=== PATIENT | female | born 1945 | race Caucasian/White ===

== ENCOUNTER 2016-11-18 13:49 | Observation (INO) | payer OTHER ==
[~2016-11-18] VITALS: Ht 167.6 cm; Wt 91.1 kg
[~2016-11-18 13:49] MED LIST: ATOR10TA82 PO; CETI10TA10 PO; CHOL1000 PO; CHOL20007 PO; LATA0.009 OPB; TIMO1SOL6 OPB
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
[2016-11-18] MEDS ORDERED: LATA0.5S OP (14:36)
[2016-11-18] MEDS ORDERED: MULT1TAB56 PO (14:38)
--- NOTE | 2016-11-18 14:42 | DIAGNOSTIC IMAGING REPORT ---
CHEST ONE VIEW PORTABLE HISTORY: Atypical CHEST PAIN COMPARISON: Chest 11/27/2015. FINDINGS: The lungs are clear. Cardiac silhouette is normal in size. No pleural effusions. No pneumothorax. IMPRESSION: No acute process. Electronically signed by: Henry Chavez M.D. 11/18/2016 2:41 PM Dictated Date/Time: 11/18/2016 2:40 PM
--- NOTE | 2016-11-18 15:01 | DIAGNOSTIC IMAGING REPORT ---
CT HEAD WITHOUT CONTRAST (CT) CLINICAL HISTORY: Amnesia. Possible stroke. Headache. COMPARISON STUDY: No previous studies for comparison. TECHNIQUE: Axial CT of the brain is performed from the vertex to the skull base. IV contrast was not administered for this examination. CT DOSE: 537.48 mGy.cm FINDINGS: No intra or extra-axial mass lesions are visualized. There is no CT evidence of acute cortical infarction. There is no evidence of midline shift. There is no acute hemorrhage. No calvarial fractures are visualized. There is no evidence of pathologic ventricular dilatation. There is no evidence of acute sinusitis IMPRESSION: No acute intracranial findings Electronically signed by: Sen Polanco M.D. 11/18/2016 3:00 PM Dictated Date/Time: 11/18/2016 2:58 PM
[2016-11-18 15:07] LABS: BASO % 0.1 %; BASO ABS # 0.01 K/uL (0-0.2); COMPLETE YES; EOS % 0.8 %; IG% 0.4 %; LYMPH % 14.2 %; MEAN CELL VOLUME 89.4 fL (80-100); MEAN CORPUSCULAR HEMOGLOBIN 30.1 pg (25-34); MEAN CORPUSCULAR HGB CONC 33.6 g/dl (32-36); MEAN PLATELET VOLUME 10.4 fL (7.4-10.4); MONO % 7.6 %; NEUT % 76.9 %; PLATELET COUNT 200 K/uL (130-400); RED BLOOD COUNT 4.92 M/uL (4.2-5.4); WHITE BLOOD COUNT 8.45 K/uL (4.8-10.8)
[2016-11-18 15:30] LABS: BLOOD UREA NITROGEN 19 mg/dl (7-18); BUN/CREATININE RATIO 21.4 (10-20); CALCIUM 9.5 mg/dl (8.5-10.1); CARBON DIOXIDE 30 mmol/L (21-32); CHLORIDE 107 mmol/L (98-107); GLUCOSE 134 mg/dl (70-99); POTASSIUM 4.1 mmol/L (3.5-5.1); SODIUM 142 mmol/L (136-145)
[2016-11-18 15:50] LABS: ALKALINE PHOSPHATASE 88 U/L (45-117); ALT/SGPT 34 U/L (12-78); AST/SGOT 17 U/L (15-37)
[2016-11-18] MEDS ORDERED: ASPIRIN 81 MG CHEW PO STA (18:24)
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
[2016-11-18] MEDS ORDERED: ZOLPIDEM TARTRATE 5 MG TAB PO PRN (20:00)
[2016-11-18] MEDS ORDERED: POLYETHYLENE (MIRALAX) 17 GM PACK PO PRN (20:00)
[2016-11-18] MEDS ORDERED: ACETAMINOPHEN 325 MG TAB PO PRN (20:00)
[2016-11-18] MEDS ORDERED: ALUMINUM/MAGNESIUM/SIMETH (MAALOX MAX) 30 ML UDC PO PRN (20:00)
[2016-11-18] MEDS ORDERED: ONDANSETRON INJ 2 MG/ML 2 ML VIAL IV PRN (20:00)
[2016-11-18] MEDS ORDERED: HydrALAZINE HCL 20 MG/ML VIAL IV. PRN (20:00)
[2016-11-18] MEDS ORDERED: MAGNESIUM HYDROXIDE SUSP 30 ML UDC PO PRN (20:00)
[2016-11-18] MEDS ORDERED: PHARMACIST DISCHARGE MED REC CONSULT PRN (20:00)
--- NOTE | 2016-11-18 20:01 | Progress Note ---
Progress Note Date of Service November 18, 2016. Progress Note trancient global amnesia, tia?[id number]
[2016-11-18 20:34] VITALS: O2SAT 94
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
[2016-11-18] MEDS ORDERED: ATORVASTATIN 10 MG TAB PO SCH (21:00)
[2016-11-18] MEDS ORDERED: LATANOPROST 0.005% OP SOLN 2.5 ML BTL OP SCH (21:00)
--- NOTE | 2016-11-18 21:07 | DIAGNOSTIC IMAGING REPORT ---
BILATERAL CAROTID DOPPLER STUDY HISTORY: Mental status change Stroke COMPARISON: None. TECHNIQUE: Real-time, grayscale, and color Doppler sonography of the carotid arteries was performed. Imaging reviewed in the transverse and longitudinal planes. All measurements were calculated based on NASCET criteria. FINDINGS: Antegrade flow is seen in the bilateral vertebral arteries. The brachial pressures are hemodynamically similar. Moderate plaque formation bilaterally The peak systolic velocity within the right ICA is 69. The right systolic ratio is 0.73. The peak systolic velocity within the left ICA is 86. The left systolic ratio is 0.83. IMPRESSION: No hemodynamically significant stenosis seen within the carotid arteries. Moderate plaque formation bilaterally Electronically signed by: Jose Duffy M.D. 11/18/2016 9:05 PM Dictated Date/Time: 11/18/2016 9:05 PM
[2016-11-18] MEDS ORDERED: LORAZEPAM 2 MG/ML 1 ML VIAL ONE (21:22)
[2016-11-18] MEDS ORDERED: NURSING VERBAL MED ORDER ONE (21:30)
[2016-11-18] MEDS ORDERED: IV FLUIDS COMPLETED PRN (22:00)
[2016-11-18] MEDS ORDERED: GADAVIST IV PRN (22:15)
--- NOTE | 2016-11-18 22:21 | DIAGNOSTIC IMAGING REPORT ---
MRI OF THE BRAIN WITHOUT AND WITH IV CONTRAST CLINICAL HISTORY: Stroke mental status change COMPARISON STUDY: No previous studies for comparison. TECHNIQUE: Utilizing a 1.5 Krystal magnet and dedicated coil, multiplanar, multiecho imaging of the brain was performed pre and postcontrast administration. IV administration of 8.5 mL of Gadavist contrast was uneventful. FINDINGS: No evidence for an acute ischemic event. Signal characteristics are unremarkable. No abnormal postcontrast enhancement. Ventricular system is midline. IMPRESSION: Normal study. Electronically signed by: Jose Duffy M.D. 11/18/2016 10:20 PM Dictated Date/Time: 11/18/2016 10:18 PM
[2016-11-18] MEDS ORDERED: PATIENT'S HEIGHT AND/OR WEIGHT NEEDED SCH (22:30)
[2016-11-18] MEDS ORDERED: LORAZEPAM INJ 0.5 MG in SYRINGE 0.75 ML IV PRN (22:30)
[2016-11-18] MEDS ORDERED: LORAZEPAM 2 MG/ML 1 ML VIAL IV PRN (22:30)
[2016-11-18 22:34] VITALS: BP 139/82; PULSE 70; TEMP 36.9; Ht 167.6 cm; Wt 91.1 kg
[2016-11-18 23:01] LABS: PARTIAL THROMBOPLASTIN RATIO 1.1; PROTHROMBIN TIME (PATIENT) 10.4 SECONDS (9.0-12.0)
[2016-11-18 23:10] VITALS: BP 122/75; PULSE 65; TEMP 36.6; O2SAT 97
[2016-11-19 03:15] VITALS: BP 103/61; PULSE 65; TEMP 36.7; O2SAT 95
[2016-11-19 07:29] LABS: BASO % 0.3 %; BASO ABS # 0.02 K/uL (0-0.2); COMPLETE YES; EOS % 1.9 %; IG% 0.2 %; LYMPH % 27.5 %; LYMPH ABS # 1.63 K/uL (1.2-3.4); MEAN CELL VOLUME 88.7 fL (80-100); MEAN CORPUSCULAR HEMOGLOBIN 30.4 pg (25-34); MEAN CORPUSCULAR HGB CONC 34.3 g/dl (32-36); MONO % 10.3 %; NEUT % 59.8 %; PLATELET COUNT 165 K/uL (130-400); RED BLOOD COUNT 4.51 M/uL (4.2-5.4); WHITE BLOOD COUNT 5.92 K/uL (4.8-10.8)
[2016-11-19 07:36] LABS: ESTIMATED AVERAGE GLUCOSE 134 mg/dl; HA1C FLAG Normal (Normal)
[2016-11-19 07:48] VITALS: BP 142/81; PULSE 63; TEMP 36.9; O2SAT 95
[2016-11-19 07:59] LABS: BUN/CREATININE RATIO 24.8 (10-20); CREATININE 0.66 mg/dl (0.60-1.20); POTASSIUM 3.6 mmol/L (3.5-5.1)
[2016-11-19 08:02] LABS: CHOLESTEROL/HDL RATIO 2.7
[2016-11-19 08:28] LABS: CALCIUM 9.1 mg/dl (8.5-10.1)
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
[2016-11-19] MEDS ORDERED: ASPIRIN 81 MG ECTAB PO SCH (09:00)
[2016-11-19] MEDS ORDERED: CEROVITE ADV FORMULA TAB PO SCH (09:00)
[2016-11-19] MEDS ORDERED: PANTOprazole SOD 40 MG TAB PO SCH (09:00)
[2016-11-19] MEDS ORDERED: ENOXAPARIN 40 MG/0.4 ML SYR SC SCH (09:00)
[2016-11-19 11:18] VITALS: BP 141/61; PULSE 67; TEMP 36.8; O2SAT 93
--- NOTE | 2016-11-19 13:10 | Discharge Instructions ---
Discharge Instructions Date of Service November 19, 2016. Admission Reason for Admission: Transient Global Amnesia Discharge Discharge Diagnosis / Problem: Complex Migraine Discharge Goals Goal(s): Decrease discomfort, Improve function, Increase independence, Improve disease control Activity Recommendations Activity Limitations: resume your previous activity Lifting Limitations: none Exercise/Sports Limitations: none May Resume Sexual Activity: when tolerated Shower/Bathe: no limitations Driving or Machine Use: no limitations . Instructions / Follow-Up Instructions / Follow-Up You were admitted to [facility] with transient amnesia and diagnosed with complex migraine s/p stress induced hypertension. - During your stay here you were treated with supportive treatment, therapy and passed speech evaluations.. - Imaging studies which were completed include CT brain, MRI brain, Chest xray and carotid ultrasound, and were all normal. An echocardiogram was completed while you were here, the results were not read by radiology but you were stable and safe for discharge. Please discuss the findings of your echocardiogram at your PCP appointment as scheduled tomorrow. Please check your blood pressure as directed by your PCP. Continue taking all medications as prescribed. Current Hospital Diet Patient's current hospital diet: AHA Diet (Heart Healthy) Discharge Diet Recommended Diet: AHA Diet (Heart Healthy) Pending Studies Studies pending at discharge: yes List of pending studies: Echocardiogram Laboratory Results Hemoglobin A1c Test 11/18/16 14:50 Range/Units Estimated Average Glucose 134 mg/dl Hemoglobin A1c 6.3 H 4.5-5.6 % Lipid Panel Test 11/19/16 07:00 Range/Units Triglycerides Level 135 0-150 mg/dl Cholesterol Level 157 0-200 mg/dl HDL Cholesterol 58 mg/dl Cholesterol/HDL Ratio 2.7 LDL Cholesterol, Calculated 72 mg/dl Medical Emergencies . Who to Call and When: Medical Emergencies: If at any time you feel your situation is an emergency, please call 911 immediately. . Non-Emergent Contact Non-Emergency issues call your: Primary Care Provider Call Non-Emergent contact if: you have a fever, temperature is above 100.5, your pain is not controlled, your pain is worsening, you have any medication questions . Past History Medical & Surgical History: (1) complex migraine (2) Hyperlipidemia (3) IBS (irritable bowel syndrome) (4) History of tobacco use . "Provider Documentation" section prepared by Deja Jc. . VTE Core Measure Inpt VTE Proph given/why not?: Enoxaparin (Lovenox)SQ, Cash Anaya, SCD's [place] Drug Monitoring Program Search Results: no issues identified
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
--- NOTE | 2016-11-19 13:27 | ECHOCARDIOGRAM REPORT ---
*NOTICE TO RECEIVING LIBERTARIAN AGENCY This information is strictly Confidential and protected under [place] law. [place] law prohibits you from making any further disclosure of this information unless further disclosure is expressly permitted by the written consent of the person to whom it pertains or is authorized by law. A general authorization for the release of medical or other information is not sufficient for this purpose. Hospital accepts no responsibility if the information is made available to any other person, INCLUDING THE PATIENT. Interpretation Summary * Name: TANO PAYTON Study Date: 11/19/2016 11:38 AM BP: 103/61 mmHg * Patient Location: .ED HR: 65 * : 1945 (M/d/yyyy) Gender: Female Height: 66 in * Age: 71 yrs Ethnicity: CA Weight: 204 lb * Ordering Physician: Ricci Meade * Referring Physician: Self, Referred * Performed By: Shravna Johnson RCS * * Reason For Study: TIA * BSA: 2.0 m2 * -- Conclusions -- * Left ventricular systolic function is normal. * Grade I diastolic dysfunction, (abnormal relaxation pattern). * Injection of contrast documented no interatrial shunt. Procedure Details * A complete two-dimensional transthoracic echocardiogram was performed (2D, M-mode, Doppler and color flow Doppler). * A saline contrast injection was performed to assess for cardiac shunting. * The injection was performed through an intravenous line in the right arm. * The attending nurse who injected the saline contrast was MORGAN RIVERA RN. * A total of 20 cc of agitated saline was given. Left Ventricle * The left ventricle is normal in size. * There is normal left ventricular wall thickness. * Ejection Fraction = 65-70%. * Left ventricular systolic function is normal. * Grade I diastolic dysfunction, (abnormal relaxation pattern). Right Ventricle * The right ventricle is normal in size and function. Atria * The left atrial size is normal. * Right atrial size is normal. * Injection of contrast documented no interatrial shunt. Mitral Valve * The mitral valve is grossly normal. * Significant mitral regurgitation is absent. Tricuspid Valve * The tricuspid valve is not well visualized, but is grossly normal. * Significant tricuspid regurgitation is absent. Aortic Valve * The aortic valve is not well visualized. * No hemodynamically significant valvular aortic stenosis. * There is no significant aortic regurgitation. Great Vessels * The aortic root is normal size. Pericardium/Pleural * There is no pericardial effusion. Great Vessels * Normal inferior vena cava diameter and respiratory variation suggests normal central venous pressure. MMode 2D Measurements and Calculations IVSd 0.87 cm IVSs 1.1 cm LVIDd 3.9 cm LVIDs 2.5 cm LVPWd 1.2 cm LVPWs 1.3 cm IVS/LVPW 0.72 FS 35.9 % EDV(Teich) 66.0 ml ESV(Teich) 22.4 ml EF(Teich) 66.1 % EDV(cubed) 59.4 ml ESV(cubed) 15.7 ml EF(cubed) 73.6 % % IVS thick 31.4 % % LVPW thick 7.5 % LV mass(C)d 128.8 grams LV mass(C)dI 63.8 grams/m\S\2 LV mass(C)s 87.8 grams LV mass(C)sI 43.6 grams/m\S\2 CO(Teich) 2.8 l/min CI(Teich) 1.4 l/min/m\S\2 SV(Teich) 43.6 ml SI(Teich) 21.6 ml/m\S\2 CO(cubed) 2.8 l/min CI(cubed) 1.4 l/min/m\S\2 SV(cubed) 43.7 ml SI(cubed) 21.7 ml/m\S\2 Ao root diam 3.4 cm Ao root area 9.0 cm\S\2 ACS 1.7 cm asc Aorta Diam 3.1 cm LVAd ap4 22.5 cm\S\2 LVLd ap4 6.8 cm EDV(MOD-sp4) 61.0 ml LVAs ap4 11.4 cm\S\2 LVLs ap4 5.5 cm ESV(MOD-sp4) 20.0 ml EF(MOD-sp4) 67.2 % LVAd ap2 17.2 cm\S\2 LVLd ap2 6.1 cm EDV(MOD-sp2) 40.0 ml LVAs ap2 8.5 cm\S\2 LVLs ap2 4.8 cm ESV(MOD-sp2) 14.0 ml EF(MOD-sp2) 65.0 % CO(MOD-sp4) 2.6 l/min CI(MOD-sp4) 1.3 l/min/m\S\2 SV(MOD-sp4) 41.0 ml SI(MOD-sp4) 20.3 ml/m\S\2 CO(MOD-sp2) 1.7 l/min CI(MOD-sp2) 0.82 l/min/m\S\2 SV(MOD-sp2) 26.0 ml SI(MOD-sp2) 12.9 ml/m\S\2 Doppler Measurements and Calculations MV E max yaritza 56.8 cm/sec MV A max yaritza 100.2 cm/sec MV E/A 0.57 MV P1/2t max yaritza 66.2 cm/sec MV P1/2t 129.0 msec MVA(P1/2t) 1.7 cm\S\2 MV dec slope 150.4 cm/sec\S\2 MV dec time 0.31 sec Ao V2 max 98.5 cm/sec Ao max PG 3.9 mmHg Ao max PG (full) 0.90 mmHg LV V1 max PG 3.0 mmHg LV V1 max 86.4 cm/sec PA V2 max 88.7 cm/sec PA max PG 3.2 mmHg PI max yaritza 125.5 cm/sec PI max PG 6.3 mmHg PI dec slope 95.1 cm/sec\S\2 PI P1/2t 386.5 msec
[2016-11-19 13:32] VITALS: BP 141/61; PULSE 67; TEMP 36.8; O2SAT 93
== END 2016-11-19 14:10 | disposition home or self-care (01) ==
LOC: ENRESERVTM → ENRESERVDT → C.EDB 13:51 → C.MED 19:52
PROVIDERS: ADMIT Hospitalist; ATTEND Hospitalist
DX: G43.809 Other migraine, not intractable, without status migrainosus (principal); E78.5 Hyperlipidemia, unspecified; R91.1 Solitary pulmonary nodule; E66.3 Overweight; Z87.891 Personal history of nicotine dependence; Z79.899 Other long term (current) drug therapy; I10 Essential (primary) hypertension; M25.551 Pain in right hip; K58.9 Irritable bowel syndrome, unspecified

== ENCOUNTER → 2016-12-31 | Outpatient (CLI) | payer OTHER ==
[~2016-12-31] MED LIST changes: -CETI10TA10 PO; -CHOL1000 PO; -CHOL20007 PO; -LATA0.009 OPB; +LATA0.5S OP; +MULT1TAB56 PO
--- NOTE | 2017-01-01 07:59 | MAMMOGRAPHY REPORT ---
BILATERAL DIGITAL SCREENING MAMMOGRAM TOMOSYNTHESIS WITH CAD: 12/31/2016 CLINICAL HISTORY: Routine screening. Patient has no complaints. TECHNIQUE: Breast tomosynthesis in addition to standard 2D mammography was performed. Current study was also evaluated with a Computer Aided Detection (CAD) system. COMPARISON: Comparison is made to exams dated: 12/30/2015 mammogram, 12/27/2014 mammogram, 12/25/2014 m ammogram, 12/21/2013 mammogram, 12/20/2012 mammogram, and 07/07/2011 mammogram - [facility]. BREAST COMPOSITION: There are scattered areas of fibroglandular density in both breasts. FINDINGS: No suspicious masses, calcifications, or areas of architectural distortion are noted in ei ther breast. There has been no significant interval change compared to prior exams. Scattered bilater al benign-appearing calcifications are not significantly changed. Circumscribed benign-appearing mas s in the right upper outer quadrant is again noted, and was shown to represent a benign cyst on the p rior 2014 ultrasound exam. IMPRESSION: ACR BI-RADS CATEGORY 2: BENIGN There is no mammographic evidence of malignancy. A 1 year screening mammogram is recommended. The pa tient will receive written notification of the results. Approximately 10% of breast cancers are not detected with mammography. A negative mammographic report should not delay biopsy if a clinically suggestive mass is present. Aggie Chen M.D. /:12/31/2016 14:38:35 Bedspread Seamer: Sherry Albarran RT(R)(Scotty)(BD), [facility] letter sent: Normal 1/2 BI-RADS Code: ACR BI-RADS Category 2: Benign
== END | disposition home or self-care (01) ==
LOC: C.MAMM 08:38
PROVIDERS: ATTEND Family Medicine
DX: Z12.31 Encounter for screening mammogram for malignant neoplasm of breast (principal)

== ENCOUNTER → 2017-01-29 | Outpatient (CLI) | payer OTHER ==
[~2017-01-29] MED LIST changes: -ATOR10TA82 PO; +ATOR10TA88 PO
== END | disposition home or self-care (01) ==
LOC: C.LABPVFM 10:12
PROVIDERS: ATTEND Nurse Practitioner Family
DX: N39.0 Urinary tract infection, site not specified (principal)

== ENCOUNTER → 2017-06-24 | Outpatient (CLI) | payer OTHER ==
[~2017-06-24] MED LIST changes: +ATOR10TA82 PO; -ATOR10TA88 PO
[2017-06-24 13:12] LABS: ESTIMATED AVERAGE GLUCOSE 131 mg/dl; HA1C FLAG Normal (Normal)
[2017-06-24 13:52] LABS: ALT/SGPT 29 U/L (12-78); AST/SGOT 16 U/L (15-37); BLOOD UREA NITROGEN 17 mg/dl (7-18); BUN/CREATININE RATIO 22.7 (10-20); CALCIUM 8.8 mg/dl (8.5-10.1); CARBON DIOXIDE 26 mmol/L (21-32); CHLORIDE 107 mmol/L (98-107); CREATININE 0.75 mg/dl (0.60-1.20); GLUCOSE 125 mg/dl (70-99); POTASSIUM 4.1 mmol/L (3.5-5.1); SODIUM 139 mmol/L (136-145)
[2017-06-24 13:55] LABS: ALKALINE PHOSPHATASE 76 U/L (45-117); CHOLESTEROL 145 mg/dl (0-200); CHOLESTEROL/HDL RATIO 2.2; HDL CHOLESTEROL 65 mg/dl; LDL CHOLESTEROL CALCULATED 54 mg/dl; TRIGLYCERIDES 130 mg/dl (0-150); VERY LOW DENSITY LIPOPROT CALC 26 mg/dl
== END | disposition home or self-care (01) ==
LOC: C.LABPVFM 10:40
PROVIDERS: ATTEND Family Medicine
DX: R73.01 Impaired fasting glucose (principal); E78.5 Hyperlipidemia, unspecified; Z11.59 Encounter for screening for other viral diseases

== ENCOUNTER 2023-04-22 20:51 | Observation (INO) ==
[~2023-04-22 20:51] MED LIST changes: -ATOR10TA82 PO; -LATA0.5S OP; -MULT1TAB56 PO; +NSS + 20MEQ KCL 20 MEQ/1,000 ML BAG IV SCH; -TIMO1SOL6 OPB
[2023-04-22] MEDS ORDERED: ASPIRIN CHEW 324 MG PO STA (20:55)
[2023-04-22] MEDS ORDERED: STAT IV Infusion **Titration per Protocol STA (21:07)
[2023-04-22] MEDS ORDERED: dilTIAZem HCl 5 MG/ML 5 ML VIAL IV STA (21:14)
[2023-04-22] MEDS ORDERED: dilTIAZem HCl 5 MG/ML 5 ML VIAL IV ONE (21:15)
[2023-04-22] MEDS ORDERED: dilTIAZem HCL 125 MG in DEXTROSE 5% 100 ML IV SCH (21:15)
[2023-04-22] MEDS ORDERED: SODIUM CHLORIDE 0.9% 1,000 ML IV SCH (21:15)
[2023-04-22 21:23] LABS: iSTAT Creatinine 0.7 mg/dl (0.6-1.3); iSTAT Ionized Calcium 1.19 mmol/l (1.12-1.32); iSTAT Potassium 3.6 mmol/L (3.3-5.0)
[2023-04-22 21:29] LABS: Basophils # (auto) 0.01 K/uL (0.00-0.20); Basophils % (auto) 0.2 %; Eosinophils # (auto) 0.07 K/uL (0.00-0.50); Eosinophils % (auto) 1.1 %; Hematocrit (blood only) 45.7 % (37.0-47.0); Hemoglobin 15.7 g/dl (12.0-16.0); Immature Granulocytes # (auto) 0.02 K/uL (0.01-0.20); Immature Granulocytes % (auto) 0.3 %; Lymphocytes # (auto) 1.76 K/uL (1.20-3.40); Lymphocytes % (auto) 27.8 %; Mean Corpuscular Hemoglobin 30.3 pg (25.0-34.0); Mean Corpuscular Hgb Conc 34.4 g/dL (32.0-36.0); Mean Corpuscular Volume 88.2 fL (80.0-100.0); Mean Platelet Volume 10.5 fL (9.4-12.4); Monocytes # (auto) 0.42 K/uL (0.11-0.59); Monocytes % (auto) 6.6 %; Neutrophils # (auto) 4.05 K/uL (1.40-6.50); Platelet Count 210 K/uL (130-400); RDW Coefficient of Variation 12.7 % (11.5-14.5); RDW Standard Deviation 41.2 fL (36.4-46.3); Red Blood Count 5.18 M/uL (4.20-5.40); White Blood Count 6.33 K/ul (4.8-10.8)
[2023-04-22] MEDS ORDERED: OPTIRAY 320 500ml IV ONE (21:37)
[2023-04-22 21:45] LABS: BUN Creatinine Ratio 23.9 (10-20); Calcium 10.1 mg/dl (8.6-10.3); Creatinine Clr Calc Pharmacy 60.9 ml/min; Est GFR (African American) 73.5 ml/min; Est GFR (Non-African American) 63.4 ml/min; Potassium 3.7 mmol/L (3.5-5.1)
[2023-04-22 21:52] LABS: Troponin I High Sensitivity 7.8 pg/ml (0-14)
[2023-04-22 22:10] LABS: INR 0.9 (0.9-1.1); Partial Thromboplastin Ratio 0.9; Partial Thromboplastin Time 26.7 Seconds (21.0-31.0); Prothrombin Time 9.9 Seconds (9.0-12.0)
--- NOTE | 2023-04-22 22:35 | CT Scan Report ---
Exam(s): CTA CHEST IV Amt: 111ml optiray 320 EXAM: CT Angiography Chest With Intravenous Contrast CLINICAL HISTORY: Rule out PE. TECHNIQUE: Axial computed tomographic angiography images of the chest with intravenous contrast. CTDI is 26.03 mGy and DLP is 808.11 mGy-cm. Automated exposure control was utilized for the study. A dose lowering technique was utilized adhering to the principles of ALARA. MIP reconstructed images were created and reviewed. COMPARISON: CT chest without contrast dated 05/15/2022 FINDINGS: Pulmonary arteries: There is no evidence for pulmonary embolism. Aorta: No acute findings. No thoracic aortic aneurysm. Lungs: There is similar subcentimeter noncalcified pulmonary nodules in the peripheral left lower lobe, stable in size and number. Slightly heterogeneous attenuation of the lungs. No focal airspace consolidation. Pleural space: Unremarkable. No significant effusion. No pneumothorax. Heart: Unremarkable. No cardiomegaly. No significant pericardial effusion. Bones/joints: No acute fracture. No dislocation. Soft tissues: Unremarkable. Lymph nodes: Unremarkable. No enlarged lymph nodes. IMPRESSION: 1. There is no evidence for pulmonary embolism. 2. No focal airspace consolidation. No pleural effusion or pneumothorax. 3. Subcentimeter noncalcified pulmonary nodules in the left lower lobe, stable from the previous examination. Electronically signed by: Guzman Solis MD 04/22/23 22:34 PM
[2023-04-22] MEDS ORDERED: Heparin IV Adult Wt-Based Low-Dose WITH Bolus Protocol IV STA (22:40)
[2023-04-22] MEDS ORDERED: HEPARIN SOD (PORCINE) 1000 UNIT/ML IV ONE (22:55)
[2023-04-22] MEDS ORDERED: HEPARIN SODIUM/DEXTROSE 25,000 UNITS/500 ML BAG IV SCH (23:00)
[2023-04-22] MEDS ORDERED: POTASSIUM CHLORIDE CRTAB 20 MEQ TABCR PO STA (23:19)
[2023-04-22] MEDS ORDERED: Nursing to Pharmacy Communication SCH (23:30)
--- NOTE | 2023-04-22 23:42 | Emergency Department Note ---
History of Present Illness General Chief Complaint: Cardiac Assessment Time Seen by Provider: 04/22/23 20:55 History of Present Illness Provider Complaint: + rapid heart beat and + palpitations Onset (ago): 1 day(s) Context: + occurred during rest Arrhythmia history: no atrial fibrillation or no on anti-coagulants Associated symptoms: + chest pain and + shortness of breath; no near-syncope or no vomiting Treatments prior to arrival: + calcium channel tony (20 mg of Cardizem was ordered which brought the patient's heart rate from 1 80-140 for EMS) and + adenosine (6 mg and 12 mg by EMS which showed atrial fibrillation) Home Medications Medication Instructions Recorded Confirmed Type cholecalciferol (vitamin D3) 75 3,000 units PO QAM 01/05/19 04/22/23 History mcg (3,000 unit) tablet atorvastatin 10 mg tablet 10 mg PO QAM #90 tabs 05/12/22 04/22/23 Rx metformin 500 mg tablet 500 mg PO DAILY #90 tabs 05/12/22 04/22/23 Rx albuterol sulfate 90 mcg/actuation 2 puff inhalation QID PRN 04/22/23 04/22/23 History aerosol inhaler (ProAir HFA) Shortness Of Breath Or Wheezing brimonidine 0.2 %-timolol 0.5 % 1 drp OPB QAM 04/22/23 04/22/23 History eye drops (Combigan) brimonidine 0.2 %-timolol 0.5 % 1 drp OPL .Q 1700 04/22/23 04/22/23 History eye drops (Combigan) brinzolamide 1 % eye 1 drp OPB QAM 04/22/23 04/22/23 History drops,suspension (Azopt) brinzolamide 1 % eye 1 drp OPL .Q 1700 04/22/23 04/22/23 History drops,suspension (Azopt) latanoprostene bunod 0.024 % eye 1 drp OPB HS 04/22/23 04/22/23 History drops (Vyzulta) pantoprazole 40 mg tablet,delayed 40 mg PO DAILY PRN Acid Reflux 04/22/23 04/22/23 History release Allergies Allergy/AdvReac Type Severity Reaction Status Date / Time Cephalosporins Allergy Severe HIVES SOB Verified 04/22/23 22:09 Penicillins Allergy Mild Hives Verified 04/22/23 22:09 codeine Allergy Unknown REDNESS,RASH, Verified 04/22/23 22:09 ITCHING hydrocodone Allergy Unknown REDNESS,RASH, Verified 04/22/23 22:09 ITCHINESS Past Med/Surg History Medical History Asthma ASTHMATIC BRONCHITIS FROM FLU-USING INHALER CURRENTLY Hyperlipidemia Impaired fasting glucose Transient global amnesia Urinary tract infection symptoms Surgical History History of cataract surgery R/L-WITH TRABECULECTOMY History of cholecystectomy History of colonoscopy History of esophagogastroduodenoscopy (EGD) History of hysterectomy History of laminectomy History of open reduction and internal fixation (ORIF) procedure LEFT HUMERUS History of tonsillectomy History of total knee replacement incorrect History of wisdom tooth extraction Family History Family/Other No problems noted. 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 Beliefs That Will Affect Care: None marital status: Current Living Situation: Spouse current occupational status: retired Feels Safe at Home: Yes Childhood Exposure to Second-Hand Smoke: No caffeine: No Dental Care, Regularly: Yes Physical Activity Frequency: Daily Physical Activity Frequency Comment: Housework/cleaning Seatbelt Use: always Sunscreen Use: Yes Assistive Devices: Glasses Physical Exam Vital Signs: Vital Signs - 24 hr 04/22/23 20:54 04/22/23 21:03 04/22/23 21:05 Temperature 36.8 C Temperature Source Oral Pulse Rate 141 H 135 H Pulse Rate [Radial ] Pulse Rate from Sp O2 Sensor Pulse Rhythm [Radi al] Pulse Strength [Ra dial] Respiratory Rate 20 Respiratory Effort / Characteristics Non-Labored Sponta neous Respiratory Depth Normal Respiratory Patter n Regular Blood Pressure 171/99 H Blood Pressure [Ri ght Arm] Blood Pressure Cindy n 123 Blood Pressure Cindy n [Right Arm] Pulse Oximetry 97 97 Oxygen Delivery Me thod Room Air Room Air Sepsis Recent Feve r Within 48 Hours No Sepsis New/Unexpla ined Change in Men amarjit Status N/A Sepsis Action Take n by Nursing No Action Required 04/22/23 21:56 04/22/23 23:00 04/22/23 23:18 Temperature Temperature Source Pulse Rate 61 Pulse Rate [Radial ] 85 63 Pulse Rate from Sp O2 Sensor Pulse Rhythm [Radi al] Regular Pulse Strength [Ra dial] Normal Respiratory Rate 17 17 Respiratory Effort / Characteristics Non-Labored Sponta neous Non-Labored Sponta neous Respiratory Depth Normal Normal Respiratory Patter n Regular Regular Blood Pressure Blood Pressure [Ri ght Arm] 117/74 134/78 Blood Pressure Cindy n Blood Pressure Cindy n [Right Arm] 88 96 Pulse Oximetry 94 95 Oxygen Delivery Me thod Room Air Room Air Sepsis Recent Feve r Within 48 Hours Sepsis New/Unexpla ined Change in Men amarjit Status Sepsis Action Take n by Nursing 04/22/23 22:30 04/22/23 23:00 Temperature Temperature Source Pulse Rate 102 H 63 Pulse Rate [Radial ] Pulse Rate from Sp O2 Sensor 100 H 64 Pulse Rhythm [Radi al] Pulse Strength [Ra dial] Respiratory Rate 23 21 Respiratory Effort / Characteristics Respiratory Depth Respiratory Patter n Blood Pressure Blood Pressure [Ri ght Arm] Blood Pressure Cindy n Blood Pressure Cindy n [Right Arm] Pulse Oximetry 96 96 Oxygen Delivery Me thod Sepsis Recent Feve r Within 48 Hours Sepsis New/Unexpla ined Change in Men amarjit Status Sepsis Action Take n by Nursing Physical Exam: Physical Exam GENERAL: oriented to person, place, and time. appears well-developed and well- nourished. HENT: Exam performed. - Head: Normocephalic and atraumatic. EYES: Conjunctivae and EOM are normal. Right eye exhibits no discharge. Left eye exhibits no discharge. No scleral icterus. NECK: Normal range of motion. Neck supple. No JVD present. CV: Tachycardic rate, irregular rhythm, normal heart sounds and intact distal pulses. There is no peripheral edema. Palpable radial pulses bue. PULM/CHEST: Effort normal and breath sounds normal. No respiratory distress. No stridor. no wheezes. no rales. ABD: The abdomen is soft. There is no tenderness. NEURO: Motor and sensation grossly intact. SKIN: Skin is warm and dry. He is not diaphoretic. PSYCH: normal mood and affect. Behavior is normal. Judgment and thought content normal. Course Course 2054: The patient was evaluated in room B1. A complete history and physical exam was performed Cardiac monitoring: An order was placed for continuous cardiac monitoring. The monitor shows a rate of 140 with atrial fibrilatino rhythm interpreted by me Patient will be given additional 25 mg of Cardizem and started on Cardizem drip for her atrial fibrillation. 2239: Vital signs stable on Cardizem drip. Labs within normal limits. CTA chest negative for PE or pneumonia. Patient has a [id number] score of 4. Patient will be started on heparin and admitted to the [facility] team Dr. Wright's team will be notified. MARZIOL<sub>2</sub>DS<sub>2</sub>-VASc Score for Atrial Fibrillation Stroke Risk from [employer] on 04/22/2023 All calculations should be rechecked by clinician prior to use RESULT SUMMARY: 4 points Stroke risk was 4.8% per year in >90,000 patients (the [place] Atrial Fibrillation Cohort Study) and 6.7% risk of stroke/TIA/systemic embolism. One recommendation suggests a 0 score for men or 1 score for women (no clinical risk factors) is low risk and may not require anticoagulation; a 1 score for men or 2 score for women is low-moderate risk and should consider antiplatelet or anticoagulation; and a score >= for men or >= for women is moderate-high risk and should otherwise be an anticoagulation candidate. INPUTS: Age > 2 = >=5 Sex > 1 = Female CHF history > 0 = No Hypertension history > 0 = No Stroke/TIA/thromboembolism history > 0 = No Vascular disease history (prior [place], peripheral artery disease, or aortic plaque) > 0 = No Diabetes history > 1 = Yes 2339: Patient is converted into sinus rhythm. Discussed case with Dr. Wright he states hold heparin at this time. Administered Medications Diltiazem HCl 125 mg/ Dextrose 125 mls @ 5 mls/hr IV .Q24H [facility]; Protocol Stop: 05/22/23 21:14 Last Admin: 04/22/23 21:26 Dose: 5 mg/hr, 5 mls/hr Documented By: LISA Co-signed By: ELLIE Discontinued Medications Aspirin (Aspirin Chew 324 Mg) 324 mg PO NOW STA Stop: 04/22/23 20:56 Last Admin: 04/22/23 21:13 Dose: 162 mg Documented By: ELLIE Diltiazem HCl (Diltiazem Hcl 5 Mg/Ml 5 Ml Vial) 25 mg IV NOW STA Stop: 04/22/23 21:15 Last Admin: 04/22/23 21:16 Dose: 25 mg Documented By: LISA Co-signed By: ELLIE Diltiazem HCl (Diltiazem Hcl 5 Mg/Ml 5 Ml Vial) Confirm Administered Dose 25 mg IV .STK-MED ONE Stop: 04/22/23 21:16 Last Admin: 04/22/23 21:16 Dose: Not Given Documented By: LISA Sodium Chloride (Nss) 1,000 mls @ 125 mls/hr IV .Q8H JAYLEEN Stop: 05/22/23 21:14 Last Admin: 04/22/23 21:27 Dose: 125 mls/hr Documented By: LISA Ioversol (Optiray 320 500ml) 111 ml IV ONCE ONE Stop: 04/22/23 21:38 Last Admin: 04/22/23 21:38 Dose: 111 ml Documented By: DANK Miscellaneous (Stat Iv Infusion Titration Per Protocol) 1 each N/A NOW STA Stop: 04/22/23 21:08 Last Admin: 04/22/23 21:17 Dose: Not Given Documented By: LISA Medical Decision Making Laboratory Data Attestation: I reviewed the patient's lab results. 04/22/23 21:05 04/22/23 21:05 Lab Results 04/22/23 04/22/23 04/22/23 Range/Units 21:05 21:05 21:05 WBC 6.33 (4.8-10.8) K/ul RBC 5.18 (4.20-5.40) M/uL Hgb 15.7 (12.0-16.0) g/dl POC Hgb (12.0-16.0) g/dl Hct 45.7 (37.0-47.0) % POC Hct (37-47) % MCV 88.2 (80.0-100.0) fL MCH 30.3 (25.0-34.0) pg MCHC 34.4 (32.0-36.0) g/dL RDW Std Deviation 41.2 (36.4-46.3) fL RDW Coeff of Ciaran 12.7 (11.5-14.5) % Plt Count 210 (130-400) K/uL MPV 10.5 (9.4-12.4) fL Immature Gran % (Auto) 0.3 % Neut % (Auto) 64.0 % Lymph % (Auto) 27.8 % [place] % (Auto) 6.6 % Eos % (Auto) 1.1 % Baso % (Auto) 0.2 % Neut # (Auto) 4.05 (1.40-6.50) K/uL Lymph # (Auto) 1.76 (1.20-3.40) K/uL [place] # (Auto) 0.42 (0.11-0.59) K/uL Eos # (Auto) 0.07 (0.00-0.50) K/uL Baso # (Auto) 0.01 (0.00-0.20) K/uL Immature Gran # (Auto) 0.02 (0.01-0.20) K/uL PT 9.9 (9.0-12.0) Seconds INR 0.9 (0.9-1.1) APTT 26.7 (21.0-31.0) Seconds PTT Ratio 0.9 POC Sodium (135-144) mmol/L Sodium 140 (136-145) mmol/L POC Potassium (3.3-5.0) mmol/L Potassium 3.7 (3.5-5.1) mmol/L POC Chloride (101-112) mmol/L Chloride 105 (98-107) mmol/L Carbon Dioxide 27 (21-32) mmol/L POC Total CO2 (24-31) mmol/L Anion Gap 8 (3-11) POC Anion Gap (16-25) mmol/L POC BUN (7-18) mg/dl BUN 21 (6-23) mg/dl Creatinine 0.88 (0.6-1.2) mg/dl POC Creatinine (0.6-1.3) mg/dl Est Cr Clr Drug Dosing 60.9 ml/min Est GFR ( Amer) 73.5 ml/min Est GFR (Non-Af Amer) 63.4 ml/min BUN/Creatinine Ratio 23.9 H (10-20) Glucose 196 H (70-99(Fasting)) mg/dl POC Glucose (other) (70-99) mg/dl Calcium 10.1 (8.6-10.3) mg/dl POC Ioniz Calcium Keegan (1.12-1.32) mmol/l Troponin I High Sens 7.8 (0-14) pg/ml Lipase 34 (11-82) U/L 04/22/23 Range/Units 21:11 WBC (4.8-10.8) K/ul RBC (4.20-5.40) M/uL Hgb (12.0-16.0) g/dl POC Hgb 16.0 (12.0-16.0) g/dl Hct (37.0-47.0) % POC Hct 47 (37-47) % MCV (80.0-100.0) fL MCH (25.0-34.0) pg MCHC (32.0-36.0) g/dL RDW Std Deviation (36.4-46.3) fL RDW Coeff of Ciaran (11.5-14.5) % Plt Count (130-400) K/uL MPV (9.4-12.4) fL Immature Gran % (Auto) % Neut % (Auto) % Lymph % (Auto) % [place] % (Auto) % Eos % (Auto) % Baso % (Auto) % Neut # (Auto) (1.40-6.50) K/uL Lymph # (Auto) (1.20-3.40) K/uL [place] # (Auto) (0.11-0.59) K/uL Eos # (Auto) (0.00-0.50) K/uL Baso # (Auto) (0.00-0.20) K/uL Immature Gran # (Auto) (0.01-0.20) K/uL PT (9.0-12.0) Seconds INR (0.9-1.1) APTT (21.0-31.0) Seconds PTT Ratio POC Sodium 144 (135-144) mmol/L Sodium (136-145) mmol/L POC Potassium 3.6 (3.3-5.0) mmol/L Potassium (3.5-5.1) mmol/L POC Chloride 105 (101-112) mmol/L Chloride (98-107) mmol/L Carbon Dioxide (21-32) mmol/L POC Total CO2 27 (24-31) mmol/L Anion Gap (3-11) POC Anion Gap 16.0 (16-25) mmol/L POC BUN 21 H (7-18) mg/dl BUN (6-23) mg/dl Creatinine (0.6-1.2) mg/dl POC Creatinine 0.7 (0.6-1.3) mg/dl Est Cr Clr Drug Dosing ml/min Est GFR ( Amer) ml/min Est GFR (Non-Af Amer) ml/min BUN/Creatinine Ratio (10-20) Glucose (70-99(Fasting)) mg/dl POC Glucose (other) 198 H (70-99) mg/dl Calcium (8.6-10.3) mg/dl POC Ioniz Calcium Keegan 1.19 (1.12-1.32) mmol/l Troponin I High Sens (0-14) pg/ml Lipase (11-82) U/L Imaging Data Radiologist's Impression: Chest CTA 04/22/23 20:56 Exam(s): CTA CHEST IV Amt: 111ml optiray 320 EXAM: CT Angiography Chest With Intravenous Contrast CLINICAL HISTORY: Rule out PE. TECHNIQUE: Axial computed tomographic angiography images of the chest with intravenous contrast. CTDI is 26.03 mGy and DLP is 808.11 mGy-cm. Automated exposure control was utilized for the study. A dose lowering technique was utilized adhering to the principles of ALARA. MIP reconstructed images were created and reviewed. COMPARISON: CT chest without contrast dated 05/15/2022 FINDINGS: Pulmonary arteries: There is no evidence for pulmonary embolism. Aorta: No acute findings. No thoracic aortic aneurysm. Lungs: There is similar subcentimeter noncalcified pulmonary nodules in the peripheral left lower lobe, stable in size and number. Slightly heterogeneous attenuation of the lungs. No focal airspace consolidation. Pleural space: Unremarkable. No significant effusion. No pneumothorax. Heart: Unremarkable. No cardiomegaly. No significant pericardial effusion. Bones/joints: No acute fracture. No dislocation. Soft tissues: Unremarkable. Lymph nodes: Unremarkable. No enlarged lymph nodes. IMPRESSION: 1. There is no evidence for pulmonary embolism. 2. No focal airspace consolidation. No pleural effusion or pneumothorax. 3. Subcentimeter noncalcified pulmonary nodules in the left lower lobe, stable from the previous examination. Electronically signed by: Guzman Solis MD 04/22/23 22:34 PM ECG Data Attestation: I personally reviewed and interpreted this ECG as follows: Additional Comments: EKG #1 at 2100: Atrial fibrillation with a rate of 122. QRS and QTc intervals are within normal limits. No ST elevation or ST depression. EKG #2 status post 25 mg Cardizem IV bolus in the emergency department: Atrial fibrillation with a rate 91. QRS and QTc intervals within normal limits. No ST elevation or ST depression. [facility] Narrative 2054: The patient was evaluated in room B1. A complete history and physical exam was performed Cardiac monitoring: An order was placed for continuous cardiac monitoring. The monitor shows a rate of 140 with atrial fibrilatino rhythm interpreted by me Patient will be given additional 25 mg of Cardizem and started on Cardizem drip for her atrial fibrillation. 2239: Vital signs stable on Cardizem drip. Labs within normal limits. CTA chest negative for PE or pneumonia. Patient has a [id number] score of 4. Patient will be started on heparin and admitted to the [facility] team Dr. Wright's team will be notified. MARIZOL<sub>2</sub>DS<sub>2</sub>-VASc Score for Atrial Fibrillation Stroke Risk from [employer] on 04/22/2023 All calculations should be rechecked by clinician prior to use RESULT SUMMARY: 4 points Stroke risk was 4.8% per year in >90,000 patients (the [place] Atrial Fibrillat [place] Cohort Study) and 6.7% risk of stroke/TIA/systemic embolism. One recommendation suggests a 0 score for men or 1 score for women (no clinical risk factors) is low risk and may not require anticoagulation; a 1 score for men or 2 score for women is low-moderate risk and should consider antiplatelet or anticoagulation; and a score >= for men or >= for women is moderate-high risk and should otherwise be an anticoagulation candidate. INPUTS: Age > 2 = >=5 Sex > 1 = Female CHF history > 0 = No Hypertension history > 0 = No Stroke/TIA/thromboembolism history > 0 = No Vascular disease history (prior [place], peripheral artery disease, or aortic plaque) > 0 = No Diabetes history > 1 = Yes 2339: Patient is converted into sinus rhythm. Discussed case with Dr. Wright he states hold heparin at this time. Impression & Plan Atrial fibrillation with RVR Critical Care Time Critical Care Time: Yes Total Critical Care Time: 41 I have personally spent greater than 41 minutes of critical care time in the direct management of this patient. This includes bedside care, interpretation of diagnostic studies, and testing, discussion with consultants, patient, and family members, and other required patient management activities. This 41 minutes is in excess of all separately billable procedures. Discharge Plan Visit Data Chief Complaint: Cardiac Assessment ED Provider: Colby Rothman Discharge Problem: Atrial fibrillation with RVR Patient Disposition: Admitted As Inpatient Forms Stand Alone Forms: My [facility] Prescriptions Prescriptions: No Action atorvastatin 10 mg tablet 10 mg PO QAM Qty: 90 3RF metformin 500 mg tablet 500 mg PO DAILY Qty: 90 3RF cholecalciferol (vitamin D3) 3,000 unit tablet 3,000 units PO QAM pantoprazole 40 mg tablet,delayed release (DR/EC) 40 mg PO DAILY PRN (Reason: Acid Reflux) albuterol sulfate [ProAir HFA] 90 mcg/actuation HFA aerosol inhaler 2 puff INH QID PRN (Reason: Shortness Of Breath Or Wheezing) brinzolamide [Azopt] 1 % drops,suspension 1 drp OPL .Q 1700 brimonidine-timolol [Combigan] 0.2-0.5 % Drops 1 drp OPL .Q 1700 Vyzulta 0.024 % drops 1 drp OPB HS Rx Instructions: Needs tonight brinzolamide [Azopt] 1 % drops,suspension 1 drp OPB QAM brimonidine-timolol [Combigan] 0.2-0.5 % Drops 1 drp OPB QAM Referrals Referrals: Osbaldo Dey DO [Primary Care Provider] -
--- NOTE | 2023-04-22 23:58 | History & Physical Report ---
Date of Service April 22, 2023 Assessment & Plan (1) Atrial fibrillation with RVR: (2) Multiple pulmonary nodules: (3) Type 2 diabetes mellitus with hyperlipidemia: (4) Acid reflux disease: (5) COPD (chronic obstructive pulmonary disease): Plan Atrial fibrillation with RVR- New onset The patient will be admitted to telemetry for serial EKG's, cardiac rhythm monitoring and a 2-D echocardiogram with Dopplers. Last stress echocardiogram on 02/18/2022 with ejection fraction 60% Continue Cardizem drip per protocol as begun in the ED Continue heparin drip without bolus per protocol For potassium 3.7, patient was given Klor-Con 40 mEq p.o. For magnesium 1.8, patient was given magnesium sulfate 1 g IV Follow laboratories serially Consult her food stand manager Dr. Brewer Glaucoma- Continue Combigan, Azopt, and Vyzulta. Combigan may be acting to help with heart rate control Diabetes mellitus- Hold metformin Placed on Accu-Cheks with NovoLog SSI Check a hemoglobin A1c Pulmonary nodules- Noted as stable on CTA of chest History of Present Illness Chief Complaint: The patient presents to the emergency department with complaint that about 830 this evening, she had acute onset of an irregular heartbeat and pressure type sensation accompanied by dyspnea on exertion Primary Care Provider: Osbaldo Dey, The patient is a 77-year-old female with a past medical history including urinary stress incontinence, COPD, multiple pulmonary nodules, diabetes mellitus type 2, hyperlipidemia, GERD, vitamin D deficiency, spinal stenosis and IBS. She reports that she had a 30-day monitor placed about 1 year ago, when she was found to have a number of PVCs and PACs by cardiology. These premature beats had resolved, without intervention. The patient reports this evening at 830, she had a cute onset of irregular heartbeat, chest squeezing, and dyspnea on exertion, symptoms like these that she had not had before. Upon arrival to the emergency department, patient was found to be in atrial fibrillation with RVR, received Cardizem IV boluses, and placed on a Cardizem drip by the ED. At the time my examination, the patient was in normal sinus rhythm. Orders had been written for heparin bolus then drip by the ED, however, the bolus was discontinued before being given, and the patient was to be started on the heparin drip. Patient reports that her symptoms of chest squeezing resolved when her heart went back into sinus rhythm. CTA chest was negative for PE, but did show stable left lower lobe pulmonary nodules. Allergies Allergy/AdvReac Type Severity Reaction Status Date / Time Cephalosporins Allergy Severe HIVES SOB Verified 04/22/23 22:09 Penicillins Allergy Mild Hives Verified 04/22/23 22:09 codeine Allergy Unknown REDNESS,RASH, Verified 04/22/23 22:09 ITCHING hydrocodone Allergy Unknown REDNESS,RASH, Verified 04/22/23 22:09 ITCHINESS Home Medications Medication Instructions Recorded Confirmed Type cholecalciferol (vitamin D3) 75 3,000 units PO QAM 01/05/19 04/22/23 History mcg (3,000 unit) tablet atorvastatin 10 mg tablet 10 mg PO QAM #90 tabs 05/12/22 04/22/23 Rx metformin 500 mg tablet 500 mg PO DAILY #90 tabs 05/12/22 04/22/23 Rx albuterol sulfate 90 mcg/actuation 2 puff inhalation QID PRN 04/22/23 04/22/23 History aerosol inhaler (ProAir HFA) Shortness Of Breath Or Wheezing brimonidine 0.2 %-timolol 0.5 % 1 drp OPB QAM 04/22/23 04/22/23 History eye drops (Combigan) brimonidine 0.2 %-timolol 0.5 % 1 drp OPL .Q 1700 04/22/23 04/22/23 History eye drops (Combigan) brinzolamide 1 % eye 1 drp OPB QAM 04/22/23 04/22/23 History drops,suspension (Azopt) brinzolamide 1 % eye 1 drp OPL .Q 1700 04/22/23 04/22/23 History drops,suspension (Azopt) latanoprostene bunod 0.024 % eye 1 drp OPB HS 04/22/23 04/22/23 History drops (Vyzulta) pantoprazole 40 mg tablet,delayed 40 mg PO DAILY PRN Acid Reflux 04/22/23 04/22/23 History release Past Med/Surg History Medical History Asthma ASTHMATIC BRONCHITIS FROM FLU-USING INHALER CURRENTLY Hyperlipidemia Impaired fasting glucose Transient global amnesia Urinary tract infection symptoms Surgical History History of cataract surgery R/L-WITH TRABECULECTOMY History of cholecystectomy History of colonoscopy History of esophagogastroduodenoscopy (EGD) History of hysterectomy History of laminectomy History of open reduction and internal fixation (ORIF) procedure LEFT HUMERUS History of tonsillectomy History of total knee replacement incorrect History of wisdom tooth extraction Family History Family/Other No problems noted. Other No pertinent family history Denies family history of Ovarian cancer Prostate cancer Myocardial infarction Breast cancer Colorectal cancer Social History Smoking Status: Former smoker Tobacco Type: Cigarettes Age Started Using Tobacco: 20; Age Quit Using Tobacco: 24; packs per day: 0.25; Second Hand Exposure: No; Do You Dip or Chew Tobacco: No; Hx Alcohol Use: No Hx Substance Use: No Preferred Language: Cymro Communication Ability: Effective Mainframe Architect Required: No Beliefs That Will Affect Care: None marital status: Current Living Situation: Spouse current occupational status: retired Other Information That Helps Us Care for You: No Feels Safe at Home: Yes Safety Concerns: Feels Safe At This Time Childhood Exposure to Second-Hand Smoke: No caffeine: No Dental Care, Regularly: Yes Physical Activity Frequency: Daily Physical Activity Frequency Comment: Housework/cleaning Seatbelt Use: always Sunscreen Use: Yes Assistive Devices: Glasses Review of Systems Review of Systems: The patient denies cough, lower extremity swelling, sore throat, fevers, chills, sweats, weight change, fatigue, nausea, vomiting, diarrhea , constipation, abdominal pain, pelvic pain, blood in urine or stool, dysuria, urinary frequency or urgency, lightheadedness, dizziness, headache, memory loss, loss of consciousness, rash, abnormal bruising or bleeding, imbalance, focal or generalized weakness, numbness or tingling in arms or legs, generalized arthralgias or myalgias, back or neck pain, or night sweats. The review of systems is otherwise negative other than for that already noted above, and at least 10 systems have been reviewed. Physical Exam Physical Exam: The patient is awake, alert and oriented 3, well developed and well nourished, normocephalic and atraumatic, lying in bed and in no acute distress. HEENT--PERRL, EOMI, mucous membranes and oropharynx normal. Neck--supple. No JVD. No bruits. Thyroid normal, trachea midline, no adenopathy. Heart--normal S1 and S2. No murmurs, rubs or gallops. Lungs--clear bilaterally, no respiratory distress, no accessory muscle use. Abdomen--normal bowel sounds and soft. Nontender. Nondistended, no hernias or masses, no organomegaly. Extremities--no cyanosis or clubbing. No edema. Dermatologic--normal skin turgor, normal color, no abnormal lymph nodes, no rash. Neurologic--cranial nerves II through XII grossly intact. Rheumatologic--normal range of motion. Psychiatric--normal affect. Results & Data Results & Data Vital Signs (Past 12 Hours) Vital Signs Temp Pulse Pulse Resp BP BP Pulse Ox 04/22/23 23:00 63 21 96 04/22/23 22:30 102 H 23 96 04/22/23 23:18 61 04/22/23 23:00 63 17 134/78 95 04/22/23 21:56 85 17 117/74 94 04/22/23 21:05 97 04/22/23 21:03 135 H 04/22/23 20:54 36.8 C 141 H 20 171/99 H 97 O2 Del Method 04/22/23 23:00 04/22/23 22:30 04/22/23 23:18 04/22/23 23:00 Room Air 04/22/23 21:56 Room Air 04/22/23 21:05 Room Air 04/22/23 21:03 04/22/23 20:54 Room Air Laboratory Results Laboratory Results WBC 6.33 K/ul (4.8-10.8) 04/22/23 21:05 RBC 5.18 M/uL (4.20-5.40) 04/22/23 21:05 Hgb 15.7 g/dl (12.0-16.0) 04/22/23 21:05 POC Hgb 16.0 g/dl (12.0-16.0) 04/22/23 21:11 Hct 45.7 % (37.0-47.0) 04/22/23 21:05 POC Hct 47 % (37-47) 04/22/23 21:11 MCV 88.2 fL (80.0-100.0) 04/22/23 21:05 MCH 30.3 pg (25.0-34.0) 04/22/23 21:05 MCHC 34.4 g/dL (32.0-36.0) 04/22/23 21:05 RDW Std Deviation 41.2 fL (36.4-46.3) 04/22/23 21:05 RDW Coeff of Ciaran 12.7 % (11.5-14.5) 04/22/23 21:05 Plt Count 210 K/uL (130-400) 04/22/23 21:05 MPV 10.5 fL (9.4-12.4) 04/22/23 21:05 Immature Gran % (Auto) 0.3 % 04/22/23: Neut % (Auto) 64.0 % 04/22/23 21:05 Lymph % (Auto) 27.8 % 04/22/23 21:05 [place] % (Auto) 6.6 % 04/22/23 21:05 Eos % (Auto) 1.1 % 04/22/23 21:05 Baso % (Auto) 0.2 % 04/22/23 21:05 Neut # (Auto) 4.05 K/uL (1.40-6.50) 04/22/23 21:05 Lymph # (Auto) 1.76 K/uL (1.20-3.40) 04/22/23 21:05 [place] # (Auto) 0.42 K/uL (0.11-0.59) 04/22/23 21:05 Eos # (Auto) 0.07 K/uL (0.00-0.50) 04/22/23 21:05 Baso # (Auto) 0.01 K/uL (0.00-0.20) 04/22/23 21:05 Immature Gran # (Auto) 0.02 K/uL (0.01-0.20) 04/22/23 21:05 PT 9.9 Seconds (9.0-12.0) 04/22/23 21:05 INR 0.9 (0.9-1.1) 04/22/23 21:05 APTT 26.7 Seconds (21.0-31.0) 04/22/23 21:05 PTT Ratio 0.9 04/22/23 21:05 POC Sodium 144 mmol/L (135-144) 04/22/23 21:11 Sodium 140 mmol/L (136-145) 04/22/23 21:05 POC Potassium 3.6 mmol/L (3.3-5.0) 04/22/23 21:11 Potassium 3.7 mmol/L (3.5-5.1) 04/22/23 21:05 POC Chloride 105 mmol/L (101-112) 04/22/23 21:11 Chloride 105 mmol/L (98-107) 04/22/23 21:05 Carbon Dioxide 27 mmol/L (21-32) 04/22/23 21:05 POC Total CO2 27 mmol/L (24-31) 04/22/23 21:11 Anion Gap 8 (3-11) 04/22/23 21:05 POC Anion Gap 16.0 mmol/L (16-25) 04/22/23 21:11 POC BUN 21 mg/dl (7-18) H 04/22/23 21:11 BUN 21 mg/dl (6-23) 04/22/23 21:05 Creatinine 0.88 mg/dl (0.6-1.2) 04/22/23 21:05 POC Creatinine 0.7 mg/dl (0.6-1.3) 04/22/23 21:11 Est Cr Clr Drug Dosing 60.9 ml/min 04/22/23 21:05 Est GFR ( Amer) 73.5 ml/min 04/22/23 21:05 Est GFR (Non-Af Amer) 63.4 ml/min 04/22/23 21:05 BUN/Creatinine Ratio 23.9 (10-20) H 04/22/23 21:05 Glucose 196 mg/dl (70-99(Fasting)) H 04/22/23 21:05 POC Glucose (other) 198 mg/dl (70-99) H 04/22/23 21:11 Calcium 10.1 mg/dl (8.6-10.3) 04/22/23 21:05 POC Ioniz Calcium Keegan 1.19 mmol/l (1.12-1.32) 04/22/23 21:11 Magnesium 1.8 mg/dl (1.7-2.4) 04/22/23 21:05 Troponin I High Sens 7.8 pg/ml (0-14) 04/22/23 21:05 Lipase 34 U/L (11-82) 04/22/23 21:05 Impressions Chest CTA 04/22/23 20:56 Exam(s): CTA CHEST IV Amt: 111ml optiray 320 EXAM: CT Angiography Chest With Intravenous Contrast CLINICAL HISTORY: Rule out PE. TECHNIQUE: Axial computed tomographic angiography images of the chest with intravenous contrast. CTDI is 26.03 mGy and DLP is 808.11 mGy-cm. Automated exposure control was utilized for the study. A dose lowering technique was utilized adhering to the principles of ALARA. MIP reconstructed images were created and reviewed. COMPARISON: CT chest without contrast dated 05/15/2022 FINDINGS: Pulmonary arteries: There is no evidence for pulmonary embolism. Aorta: No acute findings. No thoracic aortic aneurysm. Lungs: There is similar subcentimeter noncalcified pulmonary nodules in the peripheral left lower lobe, stable in size and number. Slightly heterogeneous attenuation of the lungs. No focal airspace consolidation. Pleural space: Unremarkable. No significant effusion. No pneumothorax. Heart: Unremarkable. No cardiomegaly. No significant pericardial effusion. Bones/joints: No acute fracture. No dislocation. Soft tissues: Unremarkable. Lymph nodes: Unremarkable. No enlarged lymph nodes. IMPRESSION: 1. There is no evidence for pulmonary embolism. 2. No focal airspace consolidation. No pleural effusion or pneumothorax. 3. Subcentimeter noncalcified pulmonary nodules in the left lower lobe, stable from the previous examination. Electronically signed by: Guzman Solis MD 04/22/23 22:34 PM Code Status & VTE Plan Code Status Full code VTE Prophylaxis Plan VTE Prophylaxis will be ordered: Yes PG Care Time/CCT Total # of Minutes Spent Total Time Spent with Patient: Total time spent is greater than 50% in coordination of care (as documented) at patient's floor/unit and/or counseling patient: Coding Level of Care Code 14795 INT INP/OBS CARE 3/75MIN Diagnoses Atrial fibrillation with RVR I48.91 Multiple pulmonary nodules R91.8 Type 2 diabetes mellitus with hyperlipidemia E11.69; E78.5 Acid reflux disease K21.9 COPD (chronic obstructive pulmonary disease) J44.9
[2023-04-23 00:04] LABS: Magnesium 1.8 mg/dl (1.7-2.4)
[2023-04-23] MEDS ORDERED: ONDANSETRON INJ 2 MG/ML 2 ML VIAL IV PRN (02:04)
[2023-04-23] MEDS ORDERED: PANTOprazole 40 MG TAB PO PRN (02:04)
[2023-04-23] MEDS ORDERED: BRINZOLAMIDE (AZOPT) OPS 10 ML BTL OPL SCH (02:04)
[2023-04-23] MEDS ORDERED: ACETAMINOPHEN 325 MG TAB PO PRN (02:04)
[2023-04-23] MEDS ORDERED: MAGNESIUM SULFATE / D5W 1 GM/100 ML BAG IV ONE (05:28)
[2023-04-23] MEDS ORDERED: GLUCOSE 40% GEL 15 GM TUBE PO PRN (05:30)
[2023-04-23] MEDS ORDERED: GLUCOSE 10 TAB/TUBE PO PRN (05:30)
[2023-04-23] MEDS ORDERED: DEXTROSE 50% 50 ML SYRINGE IV PRN (05:30)
[2023-04-23] MEDS ORDERED: GLUCAGON FOR INJ 1 MG VIAL SQ PRN (05:30)
[2023-04-23] MEDS ORDERED: CARBOHYDRATES FOR HYPOGLYCEMIA PO PRN (05:30)
[2023-04-23 07:28] LABS: Partial Thromboplastin Ratio 1.3
[2023-04-23] MEDS ORDERED: INSULIN ASPART PER UNIT CHARGE SC SCH (07:30)
--- NOTE | 2023-04-23 07:46 | XRay Report ---
XR chest 1V portable HISTORY: Chest pain, nonspecific COMPARISON: Chest 10/31/2022. FINDINGS: The lungs are clear. Cardiac silhouette is normal in size. No pleural effusions. No pneumot horax. Postoperative changes seen within the left humerus. IMPRESSION: No acute process. ACT 112: Negative or not required by law. Electronically signed by: Henry Chavez M.D. 04/23/2023 7:44 AM
--- NOTE | 2023-04-23 08:55 | Hospitalist Progress Note ---
Date of Service April 23, 2023 Assessment & Plan (1) Atrial fibrillation with RVR: Plan: New onset Atrial fibrillation with RVR-now controlled pending 2-D echocardiogram with Dopplers. Last stress echocardiogram on 02/18/2022 with ejection fraction 60% will need to convert cardizem gtt to a po med, will try metoprolol heparin converted to DOAC replete her electrolytes Consult her correctional program officer Dr. Brewer (2) Type 2 diabetes mellitus with hyperlipidemia: Plan: Diabetes mellitus- Hold metformin Placed on Accu-Cheks with NovoLog SSI Check a hemoglobin A1c (3) COPD (chronic obstructive pulmonary disease): Plan: typically only on a rescue inhaler PFT in 2021 with FEV1 65% predicted -> moderate obstructive lung dysfunction Pulmonary nodules- Noted as stable on CTA of chest Plan Glaucoma- Continue Combigan, Azopt, and Vyzulta. Combigan may be acting to help with heart rate control Admission and Anticipated Discharge Date Admission Date: April 22, 2023 Results & Data Results & Data Vital Signs (Past 12 Hours) Vital Signs Temp Pulse Pulse Resp BP BP Pulse Ox 04/23/23 07:25 62 04/23/23 05:00 54 L 16 94 04/23/23 04:50 56 L 15 96 04/23/23 04:40 65 19 95 04/23/23 04:30 55 L 17 95 04/23/23 04:20 51 L 17 133/74 95 04/23/23 04:10 55 L 17 96 04/23/23 04:00 55 L 15 132/74 95 04/23/23 03:50 54 L 19 95 04/23/23 03:40 54 L 17 95 04/23/23 03:30 54 L 17 94 04/23/23 03:20 57 L 17 96 04/23/23 03:10 55 L 18 95 04/23/23 03:00 54 L 17 128/67 95 04/23/23 02:50 54 L 19 96 04/23/23 02:40 58 L 19 96 04/23/23 02:30 61 14 96 04/23/23 02:20 57 L 18 95 04/23/23 02:10 65 15 95 04/23/23 02:00 61 16 131/67 96 04/23/23 01:50 58 L 17 93 04/23/23 01:40 60 19 94 04/23/23 01:30 59 L 22 95 04/23/23 01:20 63 19 95 04/23/23 01:10 62 20 96 04/23/23 01:00 58 L 20 95 04/23/23 00:50 61 22 95 04/23/23 00:40 58 L 20 96 04/23/23 00:30 59 L 18 95 04/23/23 00:20 61 20 96 04/23/23 00:10 65 22 95 04/23/23 00:00 62 21 122/67 96 04/22/23 23:50 66 16 96 04/22/23 23:40 62 21 96 04/22/23 23:30 70 20 97 04/22/23 23:20 62 18 96 04/22/23 23:10 63 19 96 04/23/23 03:18 62 17 04/23/23 03:16 04/23/23 03:16 62 132/74 98 04/23/23 01:00 60 16 97 04/22/23 23:00 63 21 96 04/22/23 22:30 102 H 23 96 04/22/23 23:18 61 04/22/23 23:00 63 17 134/78 95 04/22/23 21:56 85 17 117/74 94 04/22/23 21:05 97 04/22/23 21:03 135 H 04/22/23 20:54 98.2 F 141 H 20 171/99 H 97 Pulse Ox O2 Del Method O2 Del Method 04/23/23 07:25 04/23/23 05:00 04/23/23 04:50 04/23/23 04:40 04/23/23 04:30 04/23/23 04:20 04/23/23 04:10 04/23/23 04:00 04/23/23 03:50 04/23/23 03:40 04/23/23 03:30 04/23/23 03:20 04/23/23 03:10 04/23/23 03:00 04/23/23 02:50 04/23/23 02:40 04/23/23 02:30 04/23/23 02:20 04/23/23 02:10 04/23/23 02:00 04/23/23 01:50 04/23/23 01:40 04/23/23 01:30 04/23/23 01:20 04/23/23 01:10 04/23/23 01:00 04/23/23 00:50 04/23/23 00:40 04/23/23 00:30 04/23/23 00:20 04/23/23 00:10 04/23/23 00:00 04/22/23 23:50 04/22/23 23:40 04/22/23 23:30 04/22/23 23:20 04/22/23 23:10 04/23/23 03:18 Room Air 04/23/23 03:16 98 Room Air 04/23/23 03:16 Room Air 04/23/23 01:00 Room Air 04/22/23 23:00 04/22/23 22:30 04/22/23 23:18 04/22/23 23:00 Room Air 04/22/23 21:56 Room Air 04/22/23 21:05 Room Air 04/22/23 21:03 04/22/23 20:54 Room Air PG Care Time/CCT Total # of Minutes Spent Total Time Spent with Patient: Total time spent is greater than 50% in coordination of care (as documented) at patient's floor/unit and/or counseling patient: Coding Diagnoses Atrial fibrillation with RVR I48.91 Type 2 diabetes mellitus with hyperlipidemia E11.69; E78.5 COPD (chronic obstructive pulmonary disease) J44.9
[2023-04-23] MEDS ORDERED: BRINZOLAMIDE (AZOPT) OPS 10 ML BTL OPB SCH (09:00)
[2023-04-23] MEDS ORDERED: BRIMONIDINE TARTRATE 0.2% 5ML OP SCH (09:00)
[2023-04-23] MEDS ORDERED: TIMOLOL MALEATE 0.5% OP SOLN 5 ML BTL OP SCH (09:00)
[2023-04-23] MEDS ORDERED: METOPROLOL TARTRATE 25 MG TAB PO SCH (09:00)
[2023-04-23] MEDS ORDERED: CHOLECALCIFEROL 1,000 UNITS 25 MCG TAB PO SCH (09:00)
[2023-04-23] MEDS ORDERED: APIXABAN 5 MG TABLET PO SCH (09:00)
[2023-04-23] MEDS ORDERED: ATORVASTATIN 10 MG TAB PO SCH (09:00)
--- NOTE | 2023-04-23 09:42 | XCELERA ---
[id number] \\[id number]
--- NOTE | 2023-04-23 10:27 | Cardiology Consultation ---
Date of Consultation April 23, 2023 Assessment & Plan (1) Atrial fibrillation with RVR: (2) Paroxysmal atrial fibrillation: (3) LVH (left ventricular hypertrophy): (4) Essential hypertension: (5) Hyperlipidemia: Plan Mrs. Miller is a 77 year old female with a history of COPD, Type 2 Diabetes Mellitus, Pulmonary Nodules, Hypercholesterolemia, Elevated BP without a diagnosis of Hypertension, LVH, GERD, IBS, and Spinal Stenosis who presented to the ER last evening with New Onset Paroxysmal Atrial Fibrillation with RVR. She had the onset of Tachy-palpitations and Chest Pressure last evening while relaxing on the couch watching the news. She tried to count her pulse rate but was unable to because it was fast and erratic. This frightened her so she had her call 911 and the EMS was activated. Her EKG in the field confirmed A-Fib with RVR. An IV was started and she was given 2 doses of Adenosine -- but after a brief cardiac pause she was right back in rapid A-Fib after both doses. After arrival at the ER, patient was started on IV Cardizem and an IV Heparin drip. Last evening at approximately 10:42 p.m. she spontaneously converted back to a normal sinus rhythm -- for some reason she was not on monitor when her conversion occurred. Nonetheless, she has maintained a NSR since that time. Work-up thus far shows a high sensitivity Troponin I of 7.8 pg/mL. CBC with diff was normal. Serum K level is 3.6 mmol/L, serum Mg is 1.8 mg/dL. CXR 04/22/23 showed no acute processes. CTA CHEST 04/22/23 shows no evidence of pulmonary emboli, and subcentimeter, noncalcified LLL nodules are unchanged. EKG 04/22/23 showed A-Fib with RVR and a left posterior fascicular block pattern. account management specialist currently shows a NSR in the 's. Her Echocardiogram 04/23/23 shows: Normal LV size and systolic function, LVEF 60% to 65% with normal wall motion, mild concentric LVH, normal left atrial dimensions, and mild mitral regurgitation. Patient is completely asymptomatic at the present time. She denies any palpitations, chest pressure, SOB, lightheadedness, or any fainting spells. She has not had any symptoms suggestive of stroke or mini-stroke. We discussed what Atrial Fibrillation is, the natural history of atrial arrhythmias, and various management strategies -- including anticoagulation and rate controlling medications up to catheter based treatment if necessary. senior living anticoagulation is indicated as her [id number] is 5 which corresponds with a 7.2% yearly stroke risk. Recommend the followin. Discharge patient to home today. 2. Diltiazem CD 180 mg daily and may take an extra dose as needed for breakthrough A-Fib. 3. Eliquis 5 mg b.i.d.. 4. Follow-up with [facility] in 1 to 2 weeks with either myself or Dr. Brewer. Our office will contact the patient with an appointment. Thank you for asking us to see this patient in consultation. History of Present Illness Reason for Consultation: -- New Onset Atrial Fibrillation with RVR. Requesting Physician: Fazal Weber MD Attending Physician: Jd Whitman MD History of Present Illness Mrs. Miller is a 77 year old female with a history of COPD, Type 2 Diabetes Mellitus, Pulmonary Nodules, Hypercholesterolemia, Elevated BP without a di agnosis of Hypertension, LVH, GERD, IBS, and Spinal Stenosis who had the onset of Tachy-palpitations and Chest Pressure last evening while relaxing on the couch watching the news. She tried to count her pulse rate but was unable to because it was fast and erratic. This frightened her so she had her call 911 and the EMS was activated. Her EKG in the field confirmed A-Fib with RVR. An IV was started and she was given 2 doses of Adenosine -- but after a brief cardiac pause she was right back in rapid A-Fib after both doses. After arrival at the ER, patient was started on IV Cardizem and an IV Heparin drip. Last evening at approximately 10:42 p.m. she spontaneously converted back to a normal sinus rhythm -- for some reason she was not on monitor when her conversion occurred. Nonetheless, she has maintained a NSR since that time. Work-up thus far shows a high sensitivity Troponin I of 7.8 pg/mL. CBC with diff was normal. Serum K level is 3.6 mmol/L, serum Mg is 1.8 mg/dL. CXR 04/11 09/03 showed no acute processes. CTA CHEST 04/22/23 shows no evidence of pulmonary emboli, and subcentimeter, noncalcified LLL nodules are unchanged. EKG 04/22/23 showed A-Fib with RVR and a left posterior fascicular block pattern. account management specialist currently shows a NSR in the 70's. Her Echocardiogram 04/23/23 shows: Normal LV size and systolic function, LVEF 60% to 65% with normal wall motion, mild concentric LVH, normal left atrial dimensions, and mild mitral regurgitation. Patient is completely asymptomatic at the present time. She denies any palpitations, chest pressure, SOB, lightheadedness, or any fainting spells. She has not had any symptoms suggestive of stroke or mini-stroke. Patient had a Negative Stress Echocardiogram on 02/18/22 at 94% MPHR, normal basline echocardiogram. Allergies Allergy/AdvReac Type Severity Reaction Status Date / Time Cephalosporins Allergy Severe HIVES SOB Verified 04/22/23 22:09 Penicillins Allergy Mild Hives Verified 04/22/23 22:09 codeine Allergy Unknown REDNESS,RASH, Verified 04/22/23 22:09 ITCHING hydrocodone Allergy Unknown REDNESS,RASH, Verified 04/22/23 22:09 ITCHINESS Home Medications Medication Instructions Recorded Confirmed Type cholecalciferol (vitamin D3) 75 3,000 units PO QAM 01/05/19 04/22/23 History mcg (3,000 unit) tablet atorvastatin 10 mg tablet 10 mg PO QAM #90 tabs 05/12/22 04/22/23 Rx metformin 500 mg tablet 500 mg PO DAILY #90 tabs 05/12/22 04/22/23 Rx albuterol sulfate 90 mcg/actuation 2 puff inhalation QID PRN 04/22/23 04/22/23 History aerosol inhaler (ProAir HFA) Shortness Of Breath Or Wheezing brimonidine 0.2 %-timolol 0.5 % 1 drp OPB QAM 04/22/23 04/22/23 History eye drops (Combigan) brimonidine 0.2 %-timolol 0.5 % 1 drp OPL .Q 1700 04/22/23 04/22/23 History eye drops (Combigan) brinzolamide 1 % eye 1 drp OPB QAM 04/22/23 04/22/23 History drops,suspension (Azopt) brinzolamide 1 % eye 1 drp OPL .Q 1700 04/22/23 04/22/23 History drops,suspension (Azopt) latanoprostene bunod 0.024 % eye 1 drp OPB HS 04/22/23 04/22/23 History drops (Vyzulta) pantoprazole 40 mg tablet,delayed 40 mg PO DAILY PRN Acid Reflux 04/22/23 04/22/23 History release Patient History Medical History (Updated 04/23/23 @ 10:39 by Erich Finnegan PA-C) Asthma ASTHMATIC BRONCHITIS FROM FLU-USING INHALER CURRENTLY Hyperlipidemia Impaired fasting glucose Transient global amnesia Urinary tract infection symptoms Surgical History History of cataract surgery R/L-WITH TRABECULECTOMY History of cholecystectomy History of colonoscopy History of esophagogastroduodenoscopy (EGD) History of hysterectomy History of laminectomy History of open reduction and internal fixation (ORIF) procedure LEFT HUMERUS History of tonsillectomy History of total knee replacement incorrect History of wisdom tooth extraction Family History Family/Other No problems noted. Other No pertinent family history Denies family history of Ovarian cancer Prostate cancer Myocardial infarction Breast cancer Colorectal cancer Social History Smoking Status: Former smoker Tobacco Type: Cigarettes Age Started Using Tobacco: 20; Age Quit Using Tobacco: 24; packs per day: 0.25; Second Hand Exposure: No; Do You Dip or Chew Tobacco: No; Hx Alcohol Use: No Hx Substance Use: No Preferred Language: Albanian Communication Ability: Effective Brusher Operator Required: No Beliefs That Will Affect Care: None marital status: Current Living Situation: Spouse current occupational status: retired Other Information That Helps Us Care for You: No Feels Safe at Home: Yes Safety Concerns: Feels Safe At This Time Childhood Exposure to Second-Hand Smoke: No caffeine: No Dental Care, Regularly: Yes Physical Activity Frequency: Daily Physical Activity Frequency Comment: Housework/cleaning Seatbelt Use: always Sunscreen Use: Yes Assistive Devices: Glasses Review of Systems Review of Systems: -- 10 point ROS completed and is negative with the exception of what is in the HPI. Physical Exam Physical Exam: BP 138/82. Pulse 74 and regular. GENERAL: Patient in no acute distress. HEENT: Head is atraumatic, normocephalic. EOM's intact. Facies symmetric. No perioral cyanosis. NECK: No JVD. JVP is not elevated. Carotid upstrokes are + 2 bilaterally without bruits. CHEST/LUNGS: Clear to auscultation throughout all lung [place]. No wheezes, rales, or crackles. CVS: S1 and S2 are regular without murmurs, gallops, or rubs. PMI is nonpalpable. No lifts, heaves, or thrills. No abdominal aortic or renal bruits. ABDOMINAL EXAM: Bowel sounds are present. No masses, organomegaly, or tenderness. EXTREMITIES: No clubbing or cyanosis. No edema. Intact radial pulses bilaterally. NEUROLOGIC EXAM: Patient is awake, alert, and oriented. Pleasant and cooperative. Answers questions appropriately. Speech is clear. Open Hearth Worker: -- NSR in the 70's. Results & Data Vital Signs (Past 12 Hours) Vital Signs Pulse Pulse Resp BP BP Pulse Ox Pulse Ox 04/23/23 09:54 58 L 20 137/69 97 04/23/23 07:10 57 L 16 95 04/23/23 07:25 62 04/23/23 05:00 54 L 16 94 04/23/23 04:50 56 L 15 96 04/23/23 04:40 65 19 95 04/23/23 04:30 55 L 17 95 04/23/23 04:20 51 L 17 133/74 95 04/23/23 04:10 55 L 17 96 04/23/23 04:00 55 L 15 132/74 95 04/23/23 03:50 54 L 19 95 04/23/23 03:40 54 L 17 95 04/23/23 03:30 54 L 17 94 04/23/23 03:20 57 L 17 96 04/23/23 03:10 55 L 18 95 04/23/23 03:00 54 L 17 128/67 95 04/23/23 02:50 54 L 19 96 04/23/23 02:40 58 L 19 96 04/23/23 02:30 61 14 96 04/23/23 02:20 57 L 18 95 04/23/23 02:10 65 15 95 04/23/23 02:00 61 16 131/67 96 04/23/23 01:50 58 L 17 93 04/23/23 01:40 60 19 94 04/23/23 01:30 59 L 22 95 04/23/23 01:20 63 19 95 04/23/23 01:10 62 20 96 04/23/23 01:00 58 L 20 95 04/23/23 00:50 61 22 95 04/23/23 00:40 58 L 20 96 04/23/23 00:30 59 L 18 95 04/23/23 00:20 61 20 96 04/23/23 00:10 65 22 95 04/23/23 00:00 62 21 122/67 96 04/22/23 23:50 66 16 96 04/22/23 23:40 62 21 96 04/22/23 23:30 70 20 97 04/22/23 23:20 62 18 96 04/22/23 23:10 63 19 96 04/23/23 03:18 62 17 04/23/23 03:16 98 04/23/23 03:16 62 132/74 98 04/23/23 01:00 60 16 97 04/22/23 23:00 63 21 96 04/22/23 22:30 102 H 23 96 04/22/23 23:18 61 04/22/23 23:00 63 17 134/78 95 O2 Del Method O2 Del Method 04/23/23 09:54 Room Air 04/23/23 07:10 Room Air 04/23/23 07:25 04/23/23 05:00 04/23/23 04:50 04/23/23 04:40 04/23/23 04:30 04/23/23 04:20 04/23/23 04:10 04/23/23 04:00 04/23/23 03:50 04/23/23 03:40 04/23/23 03:30 04/23/23 03:20 04/23/23 03:10 04/23/23 03:00 04/23/23 02:50 04/23/23 02:40 04/23/23 02:30 04/23/23 02:20 04/23/23 02:10 04/23/23 02:00 04/23/23 01:50 04/23/23 01:40 04/23/23 01:30 04/23/23 01:20 04/23/23 01:10 04/23/23 01:00 04/23/23 00:50 04/23/23 00:40 04/23/23 00:30 04/23/23 00:20 04/23/23 00:10 04/23/23 00:00 04/22/23 23:50 04/22/23 23:40 04/22/23 23:30 04/22/23 23:20 04/22/23 23:10 04/23/23 03:18 Room Air 04/23/23 03:16 Room Air 04/23/23 03:16 Room Air 04/23/23 01:00 Room Air 04/22/23 23:00 04/22/23 22:30 04/22/23 23:18 04/22/23 23:00 Room Air Laboratory Results Laboratory Results - last 24 hr 04/22/23 04/22/23 04/22/23 21:05 21:05 21:05 WBC 6.33 RBC 5.18 Hgb 15.7 POC Hgb Hct 45.7 POC Hct MCV 88.2 MCH 30.3 MCHC 34.4 RDW Std Deviation 41.2 RDW Coeff of Ciaran 12.7 Plt Count 210 MPV 10.5 Immature Gran % (Auto) 0.3 Neut % (Auto) 64.0 Lymph % (Auto) 27.8 Greenlee % (Auto) 6.6 Eos % (Auto) 1.1 Baso % (Auto) 0.2 Neut # (Auto) 4.05 Lymph # (Auto) 1.76 Greenlee # (Auto) 0.42 Eos # (Auto) 0.07 Baso # (Auto) 0.01 Immature Gran # (Auto) 0.02 PT 9.9 INR 0.9 APTT 26.7 PTT Ratio 0.9 POC Sodium Sodium 140 POC Potassium Potassium 3.7 POC Chloride Chloride 105 Carbon Dioxide 27 POC Total CO2 Anion Gap 8 POC Anion Gap POC BUN BUN 21 Creatinine 0.88 POC Creatinine Est Cr Clr Drug Dosing 60.9 Est GFR ( Amer) 73.5 Est GFR (Non-Af Amer) 63.4 BUN/Creatinine Ratio 23.9 H Glucose 196 H POC Glucose POC Glucose (other) Calcium 10.1 POC Ioniz Calcium Keegan Magnesium 1.8 Troponin I High Sens 7.8 Lipase 34 04/22/23 04/23/23 04/23/23 21:11 06:16 08:00 WBC RBC Hgb POC Hgb 16.0 Hct POC Hct 47 MCV MCH MCHC RDW Std Deviation RDW Coeff of Ciaran Plt Count MPV Immature Gran % (Auto) Neut % (Auto) Lymph % (Auto) Greenlee % (Auto) Eos % (Auto) Baso % (Auto) Neut # (Auto) Lymph # (Auto) Greenlee # (Auto) Eos # (Auto) Baso # (Auto) Immature Gran # (Auto) PT INR APTT 38.0 H PTT Ratio 1.3 POC Sodium 144 Sodium POC Potassium 3.6 Potassium POC Chloride 105 Chloride Carbon Dioxide POC Total CO2 27 Anion Gap POC Anion Gap 16.0 POC BUN 21 H BUN Creatinine POC Creatinine 0.7 Est Cr Clr Drug Dosing Est GFR ( Amer) Est GFR (Non-Af Amer) BUN/Creatinine Ratio Glucose POC Glucose 122 H POC Glucose (other) 198 H Calcium POC Ioniz Calcium Keegan 1.19 Magnesium Troponin I High Sens Lipase Diagnostic Findings CXR 04/22/23: FINDINGS: The lungs are clear. Cardiac silhouette is normal in size. No pleural effusions. No pneumothorax. Postoperative changes seen within the left humerus. IMPRESSION: No acute process. CTA CHEST 04/22/23: IMPRESSION: 1. There is no evidence for pulmonary embolism. 2. No focal airspace consolidation. No pleural effusion or pneumothorax. 3. Subcentimeter noncalcified pulmonary nodules in the left lower lobe, stable from the previous examination. Medications Administered Medication List Apixaban (Apixaban 5 Mg Tablet) 5 mg PO BID [facility] Stop: 05/23/23 08:59 Last Admin: 04/23/23 10:12 Dose: 5 mg Documented By: ALBAN Atorvastatin Calcium (Atorvastatin 10 Mg Tab) 10 mg PO QAM JAYLEEN Stop: 05/23/23 08:59 Last Admin: 04/23/23 10:13 Dose: 10 mg Documented By: ALBAN Brimonidine Tartrate (Brimonidine Tartrate 0.2% 5ml) 1 drops OP 0900,1700 JAYLEEN Stop: 05/23/23 08:59 Last Admin: 04/23/23 10:08 Dose: 1 drops Documented By: ALBAN Brinzolamide (Brinzolamide (Azopt) Ops 10 Ml Btl) 1 drops OPB 0900,1700 [facility] Stop: 05/23/23 08:59 Last Admin: 04/23/23 10:08 Dose: 1 drops Documented By: ALBAN Diltiazem HCl 125 mg/ Dextrose 125 mls @ 5 mls/hr IV .Q24H [facility]; Protocol Stop: 04/23/23 11:55 Last Titration: 04/23/23 10:18 Dose: 0 mg/hr, 0 mls/hr Documented By: ALBAN Co-signed By: GERALD Titration: 04/23/23 04:26 Dose: 0 mg/hr, 0 mls/hr Documented By: LISA Co-signed By: JANE Admin: 04/22/23 21:26 Dose: 5 mg/hr, 5 mls/hr Documented By: LISA Co-signed By: ELLIE Insulin Aspart (Insulin Aspart Per Unit Charge) 0 units SC ACHS [facility] Stop: 05/23/23 07:29 Last Admin: 04/23/23 09:41 Dose: Not Given Documented By: ALBAN Metoprolol Tartrate (Metoprolol Tartrate 25 Mg Tab) 25 mg PO BID [facility] Stop: 05/23/23 08:59 Last Admin: 04/23/23 10:15 Dose: Not Given Documented By: ALBAN Miscellaneous (Vyzulta 0.024% - Order Awaiting Action) 1 each N/A QS [facility] Stop: 05/23/23 07:59 Last Admin: 04/23/23 09:43 Dose: Not Given Documented By: ALBAN Timolol Maleate (Timolol Maleate 0.5% Op Soln 5 Ml Btl) 1 drops OP 0900,1700 [facility] Stop: 05/23/23 08:59 Last Admin: 04/23/23 10:08 Dose: 1 drops Documented By: ALBAN Vitamin D (Cholecalciferol 1,000 Units 25 Mcg Tab) 3,000 units PO QAM [facility] Stop: 05/23/23 08:59 Last Admin: 04/23/23 10:13 Dose: 3,000 units Documented By: ALBAN Discontinued Medications Aspirin (Aspirin Chew 324 Mg) 324 mg PO NOW STA Stop: 04/22/23 20:56 Last Admin: 04/22/23 21:13 Dose: 162 mg Documented By: ELLIE Diltiazem HCl (Diltiazem Hcl 5 Mg/Ml 5 Ml Vial) 25 mg IV NOW STA Stop: 04/22/23 21:15 Last Admin: 04/22/23 21:16 Dose: 25 mg Documented By: LISA Co-signed By: ELLIE Diltiazem HCl (Diltiazem Hcl 5 Mg/Ml 5 Ml Vial) Confirm Administered Dose 25 mg IV .STK-MED ONE Stop: 04/22/23 21:16 Last Admin: 04/22/23 21:16 Dose: Not Given Documented By: LISA Heparin Sodium/Dextrose (Heparin Iv Adult Wt-Based Low-Dose With Bolus Protocol) 1 each IV NOW STA; Protocol Stop: 04/22/23 22:41 Last Admin: 04/22/23 23:38 Dose: Not Given Documented By: LISA Sodium Chloride (Nss) 1,000 mls @ 125 mls/hr IV .Q8H JAYLEEN Stop: 05/22/23 21:14 Last Infusion: 04/23/23 01:42 Dose: 0 mls/hr Documented By: Admin: 04/22/23 21:27 Dose: 125 mls/hr Documented By: LISA Heparin Sodium/Dextrose (Heparin Sodium/Dextrose) 25,000 units in 500 mls @ 17 mls/hr IV .Q24H JAYLEEN; Protocol Stop: 05/22/23 22:59 Last Titration: 04/23/23 10:01 Dose: 0 units/hr, 0 mls/hr Documented By: ALBAN Co-signed By: AGA Titration: 04/23/23 07:41 Dose: 900 units/hr, 18 mls/hr Documented By: ALBAN Co-signed By: DANN Admin: 04/22/23 23:38 Dose: 850 units/hr, 17 mls/hr Documented By: LISA Co-signed By: ELLIE Potassium Chloride/Sodium Chloride (Normal Saline W/20 Meq Kcl) 20 meq in 1,000 mls @ 100 mls/hr IV .Q10H JAYLEEN; Protocol Stop: 04/22/23 11:44 Last Admin: 04/23/23 03:16 Dose: Not Given Documented By: LISA Magnesium Sulfate/Dextrose (Magnesium Sulfate / D5w) 1 gm in 100 mls @ 50 mls/hr IV ONE ONE Stop: 04/23/23 07:27 Last Infusion: 04/23/23 09:09 Dose: 0 mls/hr Documented By: Admin: 04/23/23 06:26 Dose: 50 mls/hr Documented By: LISA Ioversol (Optiray 320 500ml) 111 ml IV ONCE ONE Stop: 04/22/23 21:38 Last Admin: 04/22/23 21:38 Dose: 111 ml Documented By: DANK Samaneous (Stat Iv Infusion Titration Per Protocol) 1 each N/A NOW STA Stop: 04/22/23 21:08 Last Admin: 04/22/23 21:17 Dose: Not Given Documented By: LISA Mcdonoughcellaneous Information (Nursing To Pharmacy Communication) 1 each N/A TODAY JAYLEEN Stop: 05/22/23 23:29 Last Admin: 04/22/23 23:38 Dose: Not Given Documented By: LISA Potassium Chloride (Potassium Chloride Crtab 20 Meq Tabcr) 40 meq PO NOW STA Stop: 04/22/23 23:20 Last Admin: 04/22/23 23:38 Dose: 40 meq Documented By: LISA PG Care Time/CCT Total # of Minutes Spent Total Time Spent with Patient: Total time spent is greater than 50% in coordination of care (as documented) at patient's floor/unit and/or counseling patient:48 Coding [place] [address] INT INP/OBS CARE 2/55MIN Patient Type Established History Comprehensive Exam Comprehensive Medical Decision Making Moderate Complexity Diagnoses Atrial fibrillation with RVR I48.91 Paroxysmal atrial fibrillation I48.0 LVH (left ventricular hypertrophy) I51.7 Essential hypertension I10 Hyperlipidemia E78.5 Time Spent (min) 59
--- NOTE | 2023-04-23 14:42 | Electrocardiogram Report ---
Test Reason : Blood Pressure : / mmHG Vent. Rate : 122 BPM Atrial Rate : 000 BPM P-R Int : 000 ms QRS Dur : 084 ms QT Int : 272 ms P-R-T Axes : 000 -56 081 degrees QTc Int : 387 ms Atrial fibrillation with rapid ventricular response Left axis deviation Nonspecific ST abnormality Abnormal ECG When compared with ECG of 18-NOV-2016 14:46, Atrial fibrillation has replaced Sinus rhythm Vent. rate has increased BY [address] more depressed Inferior leads ST now depressed in Lateral leads Confirmed by Jd Whitman ([id number]) on 04/23/2023 2:42:15 PM Referred By: REFERRED SELF Confirmed By:Jd Whitman
--- NOTE | 2023-04-23 14:44 | Electrocardiogram Report ---
Test Reason : Blood Pressure : / mmHG Vent. Rate : 091 BPM Atrial Rate : 000 BPM P-R Int : 000 ms QRS Dur : 084 ms QT Int : 352 ms P-R-T Axes : 000 114 -08 degrees QTc Int : 432 ms Suspect arm lead reversal, interpretation assumes no reversal Atrial fibrillation Left posterior fascicular block Nonspecific ST abnormality Abnormal ECG When compared with ECG of 22-APR-2023 21:00, (unconfirmed) Left posterior fascicular block is now Present ST no longer depressed in Inferior leads T wave inversion now evident in Inferior leads Confirmed by Jd Whitman ([id number]) on 04/23/2023 2:44:42 PM Referred By: REFERRED SELF Confirmed By:Jd Whitman
--- NOTE | 2023-04-23 14:57 | Electrocardiogram Report ---
Test Reason : Blood Pressure : / mmHG Vent. Rate : 058 BPM Atrial Rate : 058 BPM P-R Int : 148 ms QRS Dur : 088 ms QT Int : 438 ms P-R-T Axes : 068 -45 052 degrees QTc Int : 429 ms Sinus bradycardia Left anterior fascicular block Abnormal ECG When compared with ECG of 22-APR-2023 21:25, (unconfirmed) Significant changes have occurred Confirmed by Jd Whitman ([id number]) on 04/23/2023 2:56:45 PM Referred By: REFERRED SELF Confirmed By:Jd Whitman
--- NOTE | 2023-04-23 17:31 | Discharge Summary ---
Date of Service April 23, 2023 Admission HPI Per Admitting Provider The patient is a 77-year-old female with a past medical history including urinary stress incontinence, COPD, multiple pulmonary nodules, diabetes mellitus type 2, hyperlipidemia, GERD, vitamin D deficiency, spinal stenosis and IBS. She reports that she had a 30-day monitor placed about 1 year ago, when she was found to have a number of PVCs and PACs by cardiology. These premature beats had resolved, without intervention. The patient reports this evening at 830, she had a cute onset of irregular heartbeat, chest squeezing, and dyspnea on exertion, symptoms like these that she had not had before. Upon arrival to the emergency department, patient was found to be in atrial fibrillation with RVR, received Cardizem IV boluses, and placed on a Cardizem drip by the ED. At the time my examination, the patient was in normal sinus rhythm. Orders had been written for heparin bolus then drip by the ED, however, the bolus was discontinued before being given, and the patient was to be started on the heparin drip. Patient reports that her symptoms of chest squeezing resolved when her heart went back into sinus rhythm. CTA chest was negative for PE, but did show stable left lower lobe pulmonary nodules. Principal Diagnosis Patient atrial fibrillation Discharge Data Allergies Allergy/AdvReac Type Severity Reaction Status Date / Time Cephalosporins Allergy Severe HIVES SOB Verified 04/22/23 22:09 Penicillins Allergy Mild Hives Verified 04/22/23 22:09 codeine Allergy Unknown REDNESS,RASH, Verified 04/22/23 22:09 ITCHING hydrocodone Allergy Unknown REDNESS,RASH, Verified 04/22/23 22:09 ITCHINESS Consultations 04/22/23 22:40 ED Decision to Admit Stat 04/23/23 02:04 Consult Cardiology Routine Ordered Studies 04/22/23 20:56 CT angio chest PE protocol Stat Hospital Course (1) Atrial fibrillation with RVR: New onset Atrial fibrillation with RVR-now controlled converted to normal sinus rhythm pending 2-D echocardiogram with Dopplers. Last stress echocardiogram on 02/18/2022 with ejection fraction 60% will need to convert cardizem gtt to a po med, will try metoprolol heparin converted to DOAC replete her electrolytes no abnormal troponin is noted We will have outpatient follow-up with research/program director Dr. Osman (2) Type 2 diabetes mellitus with hyperlipidemia: Diabetes mellitus- Resume metformin (3) COPD (chronic obstructive pulmonary disease): typically only on a rescue inhaler PFT in 2021 with FEV1 65% predicted -> moderate obstructive lung dysfunction Pulmonary nodules- Noted as stable on CTA of chest continue to recommend outpatient follow-up Plan Glaucoma- Continue Combigan, Azopt, and Vyzulta. Combigan may be acting to help with heart rate control Total Time Total Time Spent Total Time Spent (In Minutes): It required greater than 30 minutes to prepare this patient for discharge Discharge Plan Discharge Items Patient Disposition: Home - Self-Care Reason For Visit: NEW ONSET ATRIAL FIB W/ RVR Discharge Diagnosis: atrial fibrillation, converted to NSR Activity: Resume your previous activity Non-emergency contact: Core Analyst Call non-emergency contact if: your symptoms worsen Follow-up/Referrals: Tom Brewer MD, PhD [Physician] - Osbaldo Dey DO [Primary Care Provider] - Diet: Regular Addtl Attending Provider Instructions: Overview Atrial fibrillation is an irregular and often fast heartbeat. Treating this condition is important for several reasons. It can cause blood clots, which can travel from your heart to your brain and cause a stroke. An irregular heartbeat can also increase your risk for heart failure. If you have an episode of atrial fibrillation, you may feel a fluttering, racing, or pounding feeling in your chest called palpitations. You may feel short of breath, lightheaded, dizzy, or weak. Treatment can help you feel better and prevent future problems. Treatments can slow the heart rate, control the heart rhythm, or help prevent stroke. You will likely take medicine. You may have a procedure, such as electrical cardioversion or catheter ablation. You can live well and help manage atrial fibrillation by having a heart-healthy lifestyle. This lifestyle may help reduce symptoms and how often you have episodes. Follow-up care is a ayoub part of your treatment and safety.Be sure to make and go to all appointments, and call your doctor if you are having problems. It's also a good idea to know your test results and keep a list of the medicines you take. How can you care for yourself at home? * Be safe with medicines. * Take your medicines exactly as prescribed. Call your doctor if you think you are having a problem with your medicine. You will get more details on the specific medicines your doctor prescribes. * If your doctor has given you a blood thinner to prevent a stroke, be sure you get instructions about how to take your medicine safely. Blood thinners can cause serious bleeding problems. * Do not take any vitamins, pxwg-vsy-gjlbvvn drugs, or herbal products without talking to your doctor first. * Have a heart-healthy lifestyle. * Try to quit or cut back on using tobacco and other nicotine products. This includes smoking. Avoid secondhand smoke too. * Eat heart-healthy foods. These include vegetables, fruits, nuts, beans, lean meat, fish, and whole grains. Limit sodium and sugar. * Limit alcohol. Limit alcohol to 2 drinks a day for men and 1 drink a day for women. Avoid alcohol if it triggers symptoms. * Be active. Try to get at least 30 minutes of physical activity on most days of the week. Talk to your doctor about what type and level of exercise is safe for you. * Stay at a weight that's healthy for you. Talk to your doctor if you need help losing weight. * Try to manage stress. * Try to get 7 to 9 hours of sleep each night. * Manage other health problems such as high blood pressure, high cholesterol, and diabetes. If you think you may have a problem with alcohol or drug use, talk to your doctor. * Avoid infections such as COVID-19, colds, and the flu. Get the flu vaccine every year. Get a pneumococcal vaccine. If you have had one before, ask your doctor whether you need another dose. Stay up to date on your COVID-19 vaccines. * Learn how to manage symptoms. * Make a symptom action plan with your doctor. This will help you know what to do when you have an episode of atrial fibrillation. * Use a symptom diary to find what triggers your symptoms. If you know your triggers, you can take steps to avoid them. * Check your pulse regularly if your doctor recommends it. Pending Studies at Discharge: No Stand-Alone Forms: My [facility], Smoking Cessation Medications and DC Order Prescriptions: New Eliquis 5 mg Tablet 5 mg PO BID Qty: 60 4RF metoprolol succinate 25 mg capsule,sprinkle,ER 24hr 25 mg PO DAILY Qty: 30 5RF Continued atorvastatin 10 mg tablet 10 mg PO QAM Qty: 90 3RF metformin 500 mg tablet 500 mg PO DAILY Qty: 90 3RF cholecalciferol (vitamin D3) 3,000 unit tablet 3,000 units PO QAM pantoprazole 40 mg tablet,delayed release (DR/EC) 40 mg PO DAILY PRN (Reason: Acid Reflux) albuterol sulfate [ProAir HFA] 90 mcg/actuation HFA aerosol inhaler 2 puff INH QID PRN (Reason: Shortness Of Breath Or Wheezing) brinzolamide [Azopt] 1 % drops,suspension 1 drp OPL .Q 1700 brimonidine-timolol [Combigan] 0.2-0.5 % Drops 1 drp OPL .Q 1700 Vyzulta 0.024 % drops 1 drp OPB HS Rx Instructions: Needs tonight brinzolamide [Azopt] 1 % drops,suspension 1 drp OPB QAM brimonidine-timolol [Combigan] 0.2-0.5 % Drops 1 drp OPB QAM Discharge Orders: Discharge Order (Routine); Ordered 04/23/23 Ordered By: Fazal Weber Admission Data Admit Date/Time: 04/22/23 23:57 Attending Provider: Fazal Weber Admit Provider: Aleks Doan Primary Care Provider: Osbaldo Dey Other Providers: [facility] ; Aleks Doan ; Tom Brewer Other Interventions: Discharge Summary Assessment (RN) Last Done: 04/23/23 11:54 Coding Level of Care Code 93291 INP/OBS DISCH >30 MIN Diagnoses Atrial fibrillation with RVR I48.91 Type 2 diabetes mellitus with hyperlipidemia E11.69; E78.5 COPD (chronic obstructive pulmonary disease) J44.9
[2023-04-24 11:26] LABS: Estimated Average Glucose 134 mg/dl; Hemoglobin A1C 6.3 % (4.5-5.6)
== END 2023-04-23 11:54 | disposition home or self-care (01) ==
LOC: ED 20:51 → EDINP 20:51 → SUATTDRO 23:57 → EDINP 04-23 02:04